=== PATIENT | female | born 1940 | race Caucasian/White ===

== ENCOUNTER 2017-09-08 10:47 | Inpatient (IN) ==
--- OUTSIDE RECORDS SUMMARY | 2017-09-08 11:18 | External Medical Summary ---
:1940 Author Organization [facility]. Summary purpose CCDA Sent to [facility] Chief Complaint and Reason for Visit No authorized Reason for Visit (Admitting Diagnosis) is available for this visit. Problem list No authorized problems tracked for continuity of care are available for this visit. Encounters No authorized problems tracked for encounter diagnoses are available for this visit. Medications No medications recorded for this patient visit Allergies, adverse reactions, alerts Allergen Category Ingredient Status Reaction Severity Onset No Known Drug No Known Drug No Known Drug Active Allergy Allergy Allergy No Known Food No Known Food No Known Food Active Allergy Allergy Allergies Immunizations No immunizations recorded for this patient visit Relevant diagnostic tests and/or laboratory data RESULTS CBC :30:00 Result Normal Range Units WBC 5.40 4.8-10.8 x103/mm3 Neutrophil % L 49.2 50-70 % Lymph % 30.4 20-50 % [place] % H 14.8 1.0-9.0 % Eosinophil % H 5.0 0-4 % Basophil % 0.6 0-2 % Neutrophil # L 2.66 3.0-7.0 x103/mm3 Lymph # 1.64 1.0-4.0 x103/mm3 [place] # 0.80 0.0-0.8 x103/mm3 Eosinophil # 0.27 0-0.5 x103/mm3 Basophil # 0.03 0-0.2 x103/mm3 RBC L 4.07 4.20-5.40 x103/mm3 HGB 13.1 12.0-16.0 g/dl HCT 40.2 37.0-47.0 % MCV 98.8 81-99 FL MCH H 32.2 27.0-31.0 pg MCHC 32.6 32.0-36.0 g/dl RDW 12.9 12-15 % Platelet 183 150-400 x103/mm3 MPV H 11.7 6.0-10.0 FL Chemistry Group :30:00 Result Normal Range Units Sodium 138 134-145 mmol/L Potassium 3.9 3.6-5.0 mmol/L Chloride 100 98-107 mmol/L CO2 26 22-30 mmol/L Glucose H 114 75-110 mg/dl BUN 10 9-20 mg/dl Creatinine L .70 0.8-1.7 mg/dl eGFR 81 ml/min. Calcium 9.3 8.4-10.2 mg/dl Coagulation Group [id number]:30:00 Result Normal Range Units Protime 10.7 9.5-12.3 Sec INR 1.0 History of procedures Procedure Code Code Type Description Date Performed Performing Physician 61663 CPT-4 PROTHROMBIN TIME 11-22-2016 [facility] 11472 CPT-4 METABOLIC PANEL TOTAL 11-22-2016 [place] [address] CPT-4 COMPLETE CBC, 11-22-2016 [facility] AUTOMATED Functional status No functional or cognitive status observations are available for this visit. Vital signs No authorized vital signs are available for this visit. Social history No Social History or smoking status observations were recorded for this visit. ( Unknown if ever smoked.) Treatment Plan No treatment plan text is available for this visit. Hospital discharge instructions No discharge instruction text is available for this visit.
--- OUTSIDE RECORDS SUMMARY | 2017-09-08 11:18 | External Medical Summary ---
:1940 Author Organization [facility]. Summary purpose CCDA Sent to [facility] Chief Complaint and Reason for Visit Admit Diagnosis 1 FX LUMBAR VERTEBRA-CLOSE Problem list No authorized problems tracked for continuity of care are available for this visit. Encounters No authorized problems tracked for encounter diagnoses are available for this visit. Medications No home medications recorded for this patient visit Allergies, adverse reactions, alerts Allergen Category Ingredient Status Reaction Severity Onset No Known Drug No Known Drug No Known Drug Active Allergy Allergy Allergy No Known Food No Known Food No Known Food Active Allergy Allergy Allergies Immunizations No immunizations recorded for this patient visit Relevant diagnostic tests and/or laboratory data RESULTS CBC [id number]:08:00 Result Normal Range Units WBC 6.44 4.8-10.8 x103/mm3 Neutrophil % 53.6 50-70 % Lymph % 27.8 20-50 % [place] % H 15.2 1.0-9.0 % Eosinophil % 3.1 0-4 % Basophil % 0.3 0-2 % Neutrophil # 3.45 3.0-7.0 x103/mm3 Lymph # 1.79 1.0-4.0 x103/mm3 [place] # H 0.98 0.0-0.8 x103/mm3 Eosinophil # 0.20 0-0.5 x103/mm3 Basophil # 0.02 0-0.2 x103/mm3 RBC L 3.86 4.20-5.40 x103/mm3 HGB 13.1 12.0-16.0 g/dl HCT 40.0 37.0-47.0 % MCV H 103.6 81-99 FL MCH H 33.9 27.0-31.0 pg MCHC 32.8 32.0-36.0 g/dl RDW L 11.8 12-15 % Platelet 219 150-400 x103/mm3 MPV H 11.2 6.0-10.0 FL Chemistry Group [id number]:00 Result Normal Range Units Sodium 138 134-145 mmol/L Potassium 4.3 3.6-5.0 mmol/L Chloride 99 98-107 mmol/L CO2 28 22-30 mmol/L Glucose H 119 75-110 mg/dl BUN 9 9-20 mg/dl Creatinine L .7 0.8-1.7 mg/dl Calcium 9.6 8.4-10.2 mg/dl History of procedures Procedure Code Code Type Description Date Performed Performing Physician 54782 CPT-4 METABOLIC PANEL TOTAL 12-24-2014 [facility] [place] [address] CPT-4 COMPLETE CBC 12-24-2014 [facility] AUTOMATED Functional status No functional or cognitive [...]
--- OUTSIDE RECORDS SUMMARY | 2017-09-08 11:18 | External Medical Summary ---
:1940 Author Organization [facility]. Summary purpose CCDA Sent to [facility] Chief Complaint and Reason for Visit No [...] visit Relevant diagnostic tests and/or laboratory data No authorized results are available for this patient visit History of procedures Procedure Code Code Type Description Date Performed Performing Physician 28595 CPT-4 MANUAL THERAPY 05-18-2015 DAMIR GINNY 10572 CPT-4 MANUAL THERAPY 05-20-2015 DAMIR LOMAR G0283 CPT-4 ELEC STIM OTHER THAN 05-18-2015 DAMIR WALLYMAR WOUND G0283 CPT-4 ELEC STIM OTHER THAN 05-20-2015 [facility] 59147 CPT-4 MANUAL THERAPY 05-25-2015 DAMIR GROSS 60326 CPT-4 MANUAL THERAPY 05-28-2015 DAMIR GROSS G0283 CPT-4 ELEC STIM OTHER THAN 05-25-2015 [facility] CPT-4 ELEC STIM OTHER THAN 05-28-2015 DAMIR [place] WOUND [address]195 CPT-4 MANUAL THERAPY 06-02-2015 DAMIR GROSS 57964 CPT-4 MANUAL THERAPY 06-04-2015 DAMIR LOMAR G0283 CPT-4 ELEC STIM OTHER THAN 06-02-2015 DAMIR WALLYMAR WOUND G0283 CPT-4 ELEC STIM OTHER THAN 06-04-2015 DAMIR [place] WOUND 56897 CPT-4 THERAPEUTIC EXERCISES 06-09-2015 DAMIR GROSS 41429 CPT-4 MANUAL THERAPY 06-09-2015 DAMIR GROSS Functional status No functional or cognitive status [...]
--- OUTSIDE RECORDS SUMMARY | 2017-09-08 11:19 | External Medical Summary ---
:1940 Author Organization [facility]. Summary purpose CCDA Sent to [facility] Chief Complaint and Reason for Visit No [...] for this patient visit History of procedures No procedures recorded for this patient visit. Functional status No functional or cognitive status [...]
--- OUTSIDE RECORDS SUMMARY | 2017-09-08 11:19 | External Medical Summary ---
:1940 Author Organization [facility]. Summary purpose CCDA Sent to [facility] Chief Complaint and Reason for Visit Admit Diagnosis 1 R53.82 Problem list No authorized problems tracked for [...]
--- OUTSIDE RECORDS SUMMARY | 2017-09-08 11:19 | External Medical Summary ---
:1940 Author Organization [facility]. Summary purpose CCDA Sent to [facility] Chief Complaint and Reason for Visit Admit Diagnosis 1 JOINT PAIN-PELVIS Problem list No authorized problems tracked for [...] Code Type Description Date Performed Performing Physician 78583 CPT-4 PT EVALUATION 01-28-2015 [facility] 70776 CPT-4 ULTRASOUND THERAPY 01-28-2015 [facility] 67457 CPT-4 ULTRASOUND THERAPY 01-30-2015 [facility] 62399 CPT-4 MANUAL THERAPY 1/> 01-30-2015 [facility] 69495 CPT-4 THERAPEUTIC 01-28-2015 [facility] ACTIVITIES G0283 CPT-4 ELEC STIM OTHER THAN 01-28-2015 [facility] WOUND G0283 CPT-4 ELEC STIM OTHER THAN 01-30-2015 [facility] WOUND 82658 CPT-4 ULTRASOUND THERAPY 02-02-2015 [facility] 39805 CPT-4 ULTRASOUND THERAPY 02-03-2015 [facility] 88840 CPT-4 ULTRASOUND THERAPY 02-05-2015 [facility] 97881 CPT-4 MANUAL THERAPY 1/> 02-02-2015 [facility] 84005 CPT-4 MANUAL THERAPY 1/> 02-03-2015 [facility] [place] [facility] 82188 CPT-4 MANUAL THERAPY 1/> 02-05-2015 [facility] [place] [place] 94043 CPT-4 THERAPEUTIC 02-05-2015 [facility] [place] [place] ACTIVIT[facility] G0283 CPT-4 ELEC STIM OTHER THAN 02-02-2015 [facility] [place] WOUND G0283 CPT-4 ELEC STIM OTHER THAN 02-03-2015 [facility] [place] W[place] G0283 CPT-4 ELEC STIM OTHER THAN 02-05-2015 [facility] [place] [place] W[place] 32068 CPT-4 ULTRASOUND THERAPY 02-09-2015 E[facility]LINE L[place] 78442 CPT-4 ULTRASOUND THERAPY 02-10-2015 E[facility]LINE[facility]RIS L[place] 65388 CPT-4 ULTRASOUND THERAPY 02-12-2015 [facility]IS L[facility] 17258 CPT-4 MANUAL THERAPY 1/> 02-09-2015 [facility] [place] 74018 CPT-4 MANUAL THERAPY 1/> 02-10-2015 [facility] L[facility] 32490 CPT-4 MANUAL THERAPY 1/> 02-12-2015 E[facility]CHRIS LAY[facility] [place] G0283 CPT-4 ELEC STIM OTHER THAN 02-09-2015 E[facility]LINECHRIS L[place] [place] W[place] G0283 CPT-4 ELEC STIM OTHER THAN 02-10-2015 [facility]CHRIS [place] W[place] G0283 CPT-4 ELEC STIM OTHER THAN 02-12-2015 [facility]CHRIS L[facility] WOUND Functional status No functional or cognitive status [...]
--- OUTSIDE RECORDS SUMMARY | 2017-09-08 11:19 | External Medical Summary ---
:1940 Author Organization [facility]. Summary purpose CCDA Sent to [facility] Chief Complaint and Reason for [...] Relevant diagnostic tests and/or laboratory data RESULTS Chemistry Group [id number]:40:00 Result Normal Range Units Total Protein 6.7 6.3-8.2 g/dl Albumin 3.5 3.5-5.0 g/dl Alk Phos 123 38-126 U/L AST H 39 14-36 U/L ALT 37 11-66 U/L T Bili .7 0.2-1.3 mg/dl D Bili 0.0 0.0-0.3 mg/dl I Bili .5 0.0-1.1 mg/dl History of procedures Procedure Code Code Type Description Date Performed Performing Physician 07070 CPT-4 HEPATIC FUNCTION 12-27-2016 [facility] Functional status No functional or cognitive status [...]
--- OUTSIDE RECORDS SUMMARY | 2017-09-08 11:19 | External Medical Summary ---
:1940 Author Organization [facility]. Summary purpose CCDA Sent to [facility] Chief Complaint and Reason for Visit No [...] tests and/or laboratory data RESULTS Chemistry Group [id number]:14:00 Result Normal Range Units Total Protein 6.7 6.3-8.2 g/dl Albumin 3.6 3.5-5.0 g/dl Alk Phos 115 38-126 U/L AST 27 14-36 U/L ALT 20 11-66 U/L T Bili .7 0.2-1.3 mg/dl D Bili 0.0 0.0-0.3 mg/dl I Bili .4 0.0-1.1 mg/dl History of procedures No procedures recorded for [...]
--- OUTSIDE RECORDS SUMMARY | 2017-09-08 11:19 | External Medical Summary ---
:1940 Author Organization [facility]. Summary purpose CCDA Sent to [facility] Chief Complaint and Reason for Visit [...]
--- OUTSIDE RECORDS SUMMARY | 2017-09-08 11:19 | External Medical Summary ---
:1940 Author Organization [facility]. Summary purpose CCDA Sent to [facility] Chief Complaint and Reason for Visit [...] Code Type Description Date Performed Performing Physician 51027 CPT-4 ULTRASOUND THERAPY 02-18-2015 [facility] 10485 CPT-4 ULTRASOUND THERAPY 02-20-2015 [facility] 75364 CPT-4 MANUAL THERAPY 1/> 02-18-2015 [facility] 45879 CPT-4 MANUAL THERAPY 1/> 02-20-2015 [facility] G0283 CPT-4 ELEC STIM OTHER THAN 02-18-2015 [facility] WOUND G0283 CPT-4 ELEC STIM OTHER THAN 02-20-2015 [facility] WOUND 44770 CPT-4 ULTRASOUND THERAPY 02-23-2015 [facility] 34423 CPT-4 ULTRASOUND THERAPY 02-25-2015 [facility] 73083 CPT-4 MANUAL THERAPY 1/> 02-23-2015 [facility] 67387 CPT-4 MANUAL THERAPY 1/> 02-25-2015 [facility] G0283 CPT-4 ELEC STIM OTHER THAN 02-23-2015 [facility] WOUND G0283 CPT-4 ELEC STIM OTHER THAN 02-25-2015 [facility] [place] 50409 CPT-4 ULTRASOUND THERAPY 03-02-2015 [facility] 26542 CPT-4 ULTRASOUND THERAPY 03-04-2015 [facility] KIN[facility]AL [facility] 23432 CPT-4 MANUAL THERAPY 1/> 03-02-2015 [facility]IN[facility]AL [facility] 62542 CPT-4 MANUAL THERAPY 1/> 03-04-2015 [facility] G028[facility] CPT-4 ELEC STIM OTHER THAN 03-02-2015 [facility] SCOTTY[place]OM [place] G0283 CPT-4 ELEC STIM OTHER THAN 03-04-2015 [facility] [place] 69207 CPT-4 ULTRASOUND THERAPY 03-09-2015 [facility]LINECHRIS LAY[facility] 06742 CPT-4 ULTRASOUND THERAPY 03-11-2015 [facility] KINJAL [facility] 31257 CPT-4 THERAPEUTIC EXERCISES 03-11-2015 [facility] 36562 CPT-4 MANUAL THERAPY 1/> 03-09-2015 [facility] 11550 CPT-4 MANUAL THERAPY 1/> 03-11-2015 [facility] G0283 CPT-4 ELEC STIM OTHER THAN 03-09-2015 E[facility]LINE PAULINE [place] G0283 CPT-4 ELEC STIM OTHER THAN 03-11-2015 [facility] Functional status No functional or cognitive [...]
--- OUTSIDE RECORDS SUMMARY | 2017-09-08 11:19 | External Medical Summary ---
:1940 Author Organization [facility]. Summary purpose CCDA Sent to [facility] Chief Complaint and Reason for Visit No [...] tests and/or laboratory data RESULTS Chemistry Group [id number]:30:00 Result Normal Range Units Sodium 140 134-145 mmol/L Potassium 4.3 3.6-5.0 mmol/L Chloride 99 98-107 mmol/L CO2 29 22-30 mmol/L Glucose 104 75-110 mg/dl BUN 11 9-20 mg/dl Creatinine .82 0.8-1.7 mg/dl eGFR 68 ml/min. Calcium 9.5 8.4-10.2 mg/dl History of procedures Procedure Code Code Type Description Date Performed Performing Physician 43688 CPT-4 METABOLIC PANEL TOTAL 02-16-2016 EARLINE NAYAK Functional status No functional or cognitive status [...]
--- OUTSIDE RECORDS SUMMARY | 2017-09-08 11:19 | External Medical Summary ---
:1940 Author Organization [facility]. Summary purpose CCDA Sent to [facility] Chief Complaint and Reason for Visit Admit Diagnosis 1 PRE-OP EXAMINATION, UNSP Problem list No authorized problems tracked for [...] diagnostic tests and/or laboratory data RESULTS CBC :29:00 Result Normal Range Units WBC 8.61 4.8-10.8 x103/mm3 Neutrophil % 63.3 50-70 % Lymph % 20.7 20-50 % [place] % H 13.6 1.0-9.0 % Eosinophil % 2.1 0-4 % Basophil % 0.3 0-2 % Neutrophil # 5.45 3.0-7.0 x103/mm3 Lymph # 1.78 1.0-4.0 x103/mm3 [place] # H 1.17 0.0-0.8 x103/mm3 Eosinophil # 0.18 0-0.5 x103/mm3 Basophil # 0.03 0-0.2 x103/mm3 RBC L 3.74 4.20-5.40 x103/mm3 HGB 12.7 12.0-16.0 g/dl HCT 39.1 37.0-47.0 % MCV H 104.5 81-99 FL MCH H 34.0 27.0-31.0 pg MCHC 32.5 32.0-36.0 g/dl RDW 14.1 12-15 % Platelet 219 150-400 x103/mm3 MPV H 10.8 6.0-10.0 FL Chemistry Group :29:00 Result Normal Range Units Sodium 135 134-145 mmol/L Potassium 4.0 3.6-5.0 mmol/L Chloride L 96 98-107 mmol/L CO2 27 22-30 mmol/L Glucose 97 75-110 mg/dl BUN 13 9-20 mg/dl Creatinine L .7 0.8-1.7 mg/dl Calcium 9.2 8.4-10.2 mg/dl History of procedures Procedure Code Code Type Description Date Performed Performing Physician 31298 CPT-4 METABOLIC PANEL TOTAL 03-16-[place] [address] CPT-4 COMPLETE CBC AUTOMATED 03-16-2015 JULIO SANTIZO Functional status No functional or cognitive status [...]
--- OUTSIDE RECORDS SUMMARY | 2017-09-08 11:19 | External Medical Summary ---
:1940 Author Organization [facility]. Summary purpose [facility] Chief Complaint and Reason for [...] Code Type Description Date Performed Performing Physician 30027 CPT-4 PT EVALUATION 05-07-2015 [facility] 47962 CPT-4 MANUAL THERAPY 1/> 05-07-2015 [facility] G0283 CPT-4 ELEC STIM OTHER THAN 05-07-2015 [facility] [place] W[place] 27882 CPT-4 MANUAL THERAPY 1/> 05-11-2015 [facility] 52926 CPT-4 MANUAL THERAPY 1/> 05-13-2015 [facility] 36284 CPT-4 MANUAL THERAPY 1/> 05-15-2015 [facility] G0283 CPT-4 ELEC STIM OTHER THAN 05-11-2015 DAMIR WEIMAR WOUND G0283 CPT-4 ELEC STIM OTHER THAN 05-13-2015 DAMIR WEIMAR WOUND G0283 CPT-4 ELEC STIM OTHER THAN 05-15-2015 DAMIR [place] WOUND Functional status No functional or cognitive [...]
--- OUTSIDE RECORDS SUMMARY | 2017-09-08 11:19 | External Medical Summary ---
:1940 Author Organization [facility]. Summary purpose CCDA Sent to [facility] Chief Complaint and Reason for Visit [...] Code Type Description Date Performed Performing Physician 25364 CPT-4 MANUAL THERAPY 06-16-2015 DAMIR WALLYMAR 86456 CPT-4 MANUAL THERAPY 06-19-2015 DAMIR WEIMAR G0283 CPT-4 ELEC STIM OTHER THAN 06-16-2015 DAMIR WEIMAR WOUND G0283 CPT-4 ELEC STIM OTHER THAN 06-19-2015 DAMIR WEIMAR WOUND Functional status No functional or cognitive [...]
--- OUTSIDE RECORDS SUMMARY | 2017-09-08 11:19 | External Medical Summary ---
:1940 Author Organization [facility]. Summary purpose CCDA Sent to [facility] Chief Complaint and Reason for Visit Admit Diagnosis 1 syncope; L sided weakness Problem list No authorized problems tracked for [...]
--- OUTSIDE RECORDS SUMMARY | 2017-09-08 11:19 | External Medical Summary | Continuity of Care Document ---
:1940 Author Organization Via [facility] in [place] Allergies Active Description Code Type Severity Reaction Onset Reported/ Identified Relationship Clinical to Patient Status Yes No Known F0019 Drug Unknown N/A 05/20/2012 Drug 88429 Aller Allergies gy Yes No Known Drug N/A N/A 03/05/2013 Allergies Aller gy Yes No Known Drug N/A N/A 03/05/2013 Drug Aller Allergies gy Yes No Known Food N/A N/A 03/05/2013 Food Aller Allergies gy Yes No Known 15906 ND N/A N/A 03/09/2013 Confirmed Drug Allergy 590 or Verified Yes No Known NO NF N/A N/A 03/09/2013 Food KNOWN Allergies FOOD ALLER G Yes No Known NF N/A N/A 03/09/2013 Confirmed Food Allergy or Verified Yes acetaminophe F0060 Drug Moderate Hallucina 12/11/2016 n 23625 Aller tions gy Yes oxycodone F0060 Drug Moderate Hallucina 12/11/2016 15010 Aller tions gy Medications There is no data. Problems Date Dx Attending Type Code Diagnosis Diagnosed By Coded 05/21/2012 Ot 276.52 HYPOVOLEMIA 05/21/2012 Ot 276.8 HYPOPOTASSEMIA 05/21/2012 Ot 458.0 ORTHOSTATIC HYPOTENSION 05/21/2012 Ot 558.9 NONINF GASTROENTERIT NEC 05/21/2012 Ot V45.4 ARTHRODESIS STATUS 01/09/2013 Carlos Barrios MD Final 401.9 HYPERTENSION NOS L 01/09/2013 Carlos Barrios MD Final 530.81 ESOPHAGEAL REFLUX L 01/09/2013 Carlos Barrios MD Final 707.15 OTHER FOOT ULCER L 01/09/2013 Carlos Barrios MD Final 735.0 HALLUX VALGUS L 03/06/2013 Carlos Barrios MD Final 041.02 GROUP B STREP INFECTION L 03/06/2013 Carlos Barrios MD Final 401.9 HYPERTENSION NOS L 03/06/2013 Carlos Barrios MD Final 682.7 FOOT CELLULITIS L 03/06/2013 Carlos Barrios MD Final 707.15 OTHER FOOT ULCER L 03/06/2013 Carlos Barrios MD Final 711.07 PYOGEN ARTHRITIS-ANKLE L 03/06/2013 Carlos Barrios MD Final 727.00 SYNOVITIS NOS L 03/11/2013 Gisela ESTEBAN MD 682.7 CELLULITIS OF FOOT KIET E 03/16/2013 ANA Higgins 682.7 CELLULITIS OF FOOT MALLY GUADALUPE 03/18/2013 Gisela ESTEBAN MD 682.7 CELLULITIS OF FOOT KIET E 03/25/2013 Gisela ESTEBAN MD 682.7 CELLULITIS OF FOOT KIET E 04/01/2013 Gisela ESTEBAN MD 682.7 CELLULITIS OF FOOT JN C 04/03/2013 ANA Higgins 272.0 PURE MALLY WALKER MD 04/08/2013 Gisela ESTEBAN MD 682.7 CELLULITIS OF FOOT KIET E 04/15/2013 Gisela ESTEBAN MD 682.7 CELLULITIS OF FOOT KIET E 04/15/2013 ANA Higgins 682.7 CELLULITIS OF FOOT MALLY GUADALUPE 04/22/2013 Gisela ESTEBAN MD 686.9 LOCAL SKIN INFECTION NOS KIET E 04/30/2013 Gisela ESTEBAN MD 682.7 CELLULITIS OF FOOT KIET E 07/30/2013 ANA Higgins 401.9 HYPERTENSION NOS MALLY GUADALUPE 07/30/2013 ANA Higgins 787.01 NAUSEA WITH VOMITING MALLY GUADALUPE 10/08/2013 Gisela DUMONT MD 401.1 BENIGN HYPERTENSION ROBERTO R 10/14/2013 ANA Higgins 724.2 MALLY NASSAR MD 10/18/2013 JULIA GUADALUPE D 455.3 EXT HEMORRHOID W/O COMPL ROBERTO R 10/18/2013 JULIA GUADALUPE D 562.10 DIVERTICULO COLON NO HEM ROBERTO R 10/18/2013 Gisela DUMONT MD V76.51 SCREENING MAL GRAEME COLON ROBERTO R 11/13/2013 ANA Higgins 724.2 MALLY NASSAR MD 10/13/2014 Ot 793.89 10/16/2014 Ot 793.89 12/24/2014 ULLOM MINNIC D 805.4 FX LUMBAR VERTEBRA-CLOSE , MALLY R 02/13/2015 ULLOM MINNIC D 719.45 JOINT PAIN-PELVIS , MALLY R 02/13/2015 [facility]2 LUMBAGO , MALLY R 02/13/2015 [facility] 805.4 FX LUMBAR VERTEBRA-CLOSE , MALLY R 03/16/2015 ULLO MINNIC D V72.84 PRE-OP EXAMINATION, UNSP , MALLY R 03/16/2015 ULLOM MINNIC D 719.45 JOINT PAIN-PELVIS , MALLY R 03/16/2015 [facility] 724.2 LUMANGELA GUADALUPE, MALLY R 03/16/2015 ULLO MINNIC D 805.4 FX LUMBAR VERTEBRA-CLOSE , MALLY R 05/16/2015 GINNY GUADALUPE, D M43.26 Fusion of spine, lumbar DAMIR D region 05/16/2015 Gisela GROSS MD M54.5 Low back pain DAMIR D 06/15/2015 GINNY GUADALUPE, A 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, DAMIR D thoracolumbar region 06/15/2015 GINNY GUADALUPE, D M43.26 Fusion of spine, lumbar DAMIR D region 06/15/2015 GINNY GUADALUPE, A M54.5 Low back pain DAMIR D 07/16/2015 Gisela GROSS MD 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, DAMIR D thoracolumbar region 07/16/2015 GINNY GUADALUPE, D M43.26 Fusion of spine, lumbar DAMIR D region 07/16/2015 GINNY GUADALUPE, A M54.5 Low back pain DAMRI D 10/01/2015 Ullom Minnich, Ot Z12.31 Mally 10/01/2015 Ullom Minnich, Ot Z12.31 Mally 10/06/2015 Ullom Minnich, Ot N64.89 Mally 10/06/2015 Ullom Minnich, Ot R92.0 Mally 10/06/2015 Ullom Minnich, Ot Z12.31 Mally 10/09/2015 Ullom Minnich, Ot N64.89 Mally 10/09/2015 Ana Meraz, Ot R92.0 Mally 10/09/2015 Ana Meraz, Ot Z12.31 Mally 10/13/2015 Ana Meraz, Ot N64.89 Mally 10/13/2015 Ana Meraz, Ot N64.89 Mally 10/13/2015 Ana Meraz, Ot N64.89 Mally 10/21/2015 Ana Meraz, Ot N64.89 Mally 10/21/2015 Ana Meraz, Ot R92.0 Mally 11/16/2015 DAMIR GROSS DF M48.06 Spinal stenosis, lumbar region 11/16/2015 DAMIR GROSS DF M51.36 Other intervertebral disc degeneration, 11/16/2015 DAMIR GROSS DF Z98.1 Arthrodesis status 12/10/2015 Ana Meraz, Ot N64.89 OTHER SPECIFIED Mally DISORDERS OF BREAST 12/10/2015 Ana Meraz, Ot R92.0 MAMMOGRAPHIC Mally MICROCALCIFICATION FOUND ON 02/16/2016 ANA MERAZ Gisela I10 Essential (primary) GREGOR GUADALUPE hypertension 03/30/2016 DAMIR GROSS DF M48.06 Spinal stenosis, lumbar region 03/30/2016 DAMIR GROSS DF M51.36 Other intervertebral disc degeneration, 03/30/2016 DAMIR GROSS DF Z98.1 Arthrodesis status 04/04/2016 Ot 724.2 LUMBAGO 04/04/2016 Ot 722.10 LUMBAR DISC DISPLACEMENT 04/04/2016 Ot 722.52 LUMB/LUMBOSAC DISC DEGEN 04/04/2016 Ot 724.4 LUMBOSACRAL NEURITIS NOS 04/04/2016 Ot V45.4 ARTHRODESIS STATUS 04/04/2016 Damir Gross Ot 722.10 LUMBAR DISC DISPLACEMENT 04/04/2016 Damir Gross Ot 722.52 LUMB/LUMBOSAC DISC DEGEN 04/04/2016 Damir Gross Ot 724.02 SPINAL STENOSIS, LUMBAR REG, W/OUT NEURO 04/04/2016 Damir Gross Ot 724.4 LUMBOSACRAL NEURITIS NOS 04/04/2016 Ana Meraz, Ot 611.89 OTHER SPECIFIED Mally DISORDERS OF BREAST 04/04/2016 Ana Meraz, Ot V76.12 OTH SCREEN MAMMO-MALIGN Mally NEOPLASM OF GGAAN 04/04/2016 Ana Meraz, Ot 793.89 OTH (ABN) FINDINGS ON Mally RADIOLOGICAL EXAMI 04/04/2016 Ana Meraz, Ot 611.89 OTHER SPECIFIED Mally DISORDERS OF BREAST 04/04/2016 Ot 793.89 OTH (ABN) FINDINGS ON RADIOLOGICAL EXAMI 04/04/2016 Ana Meraz, Ot N64.89 OTHER SPECIFIED Mally DISORDERS OF BREAST 04/04/2016 Ana Meraz, Ot R92.0 MAMMOGRAPHIC Mally MICROCALCIFICATION FOUND ON 04/04/2016 Ana Meraz, Ot Z12.31 ENCNTR SCREEN MAMMOGRAM Mally FOR MALIGNANT NE 04/04/2016 Ana Meraz, Ot N64.89 OTHER SPECIFIED Mally DISORDERS OF BREAST 04/04/2016 Ana Meraz, Ot R92.0 MAMMOGRAPHIC Mally MICROCALCIFICATION FOUND ON 04/18/2016 Damir Gross Ot M25.552 PAIN IN LEFT HIP 04/18/2016 Damir Gross Ot Z98.89 OTHER SPECIFIED POSTPROCEDURAL STATES 04/25/2016 Damir Gross Ot M25.552 PAIN IN LEFT HIP 04/25/2016 Damir Gross Ot Z98.89 OTHER SPECIFIED POSTPROCEDURAL STATES 04/25/2016 Damir Gross Ot M25.552 PAIN IN LEFT HIP 04/25/2016 Damir Gross Ot Z98.89 OTHER SPECIFIED POSTPROCEDURAL STATES 04/26/2016 Damir Gross Ot M25.552 PAIN IN LEFT HIP 04/26/2016 Damir Gross Ot Z98.89 OTHER SPECIFIED POSTPROCEDURAL STATES 04/26/2016 Damir Gross Ot M25.552 PAIN IN LEFT HIP 04/26/2016 Damir Gross Ot Z98.89 OTHER SPECIFIED POSTPROCEDURAL STATES 05/06/2016 Damir Gross Ot M25.552 PAIN IN LEFT HIP 05/06/2016 Damir Gross Ot Z98.89 OTHER SPECIFIED POSTPROCEDURAL STATES 05/08/2016 Damir Gross Ot M25.552 PAIN IN LEFT HIP 05/08/2016 BrockwellDamir Ot Z98.89 OTHER SPECIFIED POSTPROCEDURAL STATES 05/08/2016 Ginny Damir Higgins Ot M25.552 PAIN IN LEFT HIP 05/08/2016 BrockwellDamir Ot Z98.89 OTHER SPECIFIED POSTPROCEDURAL STATES 05/10/2016 Ginny Damir D Ot M25.552 PAIN IN LEFT HIP 05/10/2016 BrockwellDamir figueroa Ot Z98.89 OTHER SPECIFIED POSTPROCEDURAL STATES 05/10/2016 GinnyDamir Ot M25.552 PAIN IN LEFT HIP 05/10/2016 BrockwellDamir figueroa Ot Z98.89 OTHER SPECIFIED POSTPROCEDURAL STATES 05/11/2016 GinnyDamir Ot M25.552 PAIN IN LEFT HIP 05/11/2016 Damir Gross Ot Z98.89 OTHER SPECIFIED POSTPROCEDURAL STATES 05/12/2016 BrockwellDamir Ot M25.552 PAIN IN LEFT HIP 05/12/2016 Damir Gross Ot Z98.89 OTHER SPECIFIED POSTPROCEDURAL STATES 05/12/2016 Ginny Damir Higgins Ot M25.552 PAIN IN LEFT HIP 05/12/2016 Damir Gross Ot Z98.89 OTHER SPECIFIED POSTPROCEDURAL STATES 05/19/2016 GinnyDamir Ot M25.552 PAIN IN LEFT HIP 05/19/2016 Damir Gross Ot Z98.89 OTHER SPECIFIED POSTPROCEDURAL STATES 05/24/2016 Damir Gross Ot M25.552 PAIN IN LEFT HIP 05/24/2016 Damir Gross Ot Z98.89 OTHER SPECIFIED POSTPROCEDURAL STATES 05/24/2016 BrockwellDamir Ot M25.552 PAIN IN LEFT HIP 05/24/2016 Damir Gross Ot Z98.89 OTHER SPECIFIED POSTPROCEDURAL STATES 05/30/2016 Damir Gross Ot M25.552 PAIN IN LEFT HIP 05/30/2016 Damir Gross Ot Z98.89 OTHER SPECIFIED POSTPROCEDURAL STATES 06/01/2016 Damir Gross Ot M25.552 PAIN IN LEFT HIP 06/06/2016 Damir Gross Ot M25.552 PAIN IN LEFT HIP 06/06/2016 Damir Gross Ot M25.552 PAIN IN LEFT HIP 06/21/2016 Damir Gross Ot M25.552 PAIN IN LEFT HIP 06/21/2016 Damir Gross Ot M25.552 PAIN IN LEFT HIP 06/21/2016 Brockwell Damir Higgins Ot M25.552 PAIN IN LEFT HIP 07/04/2016 Ginny Damir Higgins Ot M25.552 PAIN IN LEFT HIP 07/04/2016 Damir Gross Ot Z98.89 OTHER SPECIFIED POSTPROCEDURAL STATES 07/05/2016 Damir Gross Ot M25.552 PAIN IN LEFT HIP 07/12/2016 Damir Gross Ot M25.552 PAIN IN LEFT HIP 07/12/2016 Damir Gross Ot Z98.89 OTHER SPECIFIED POSTPROCEDURAL STATES 08/06/2016 DAMIR GROSS DA M51.36 Other intervertebral disc degeneration, 08/08/2016 DAMIR GROSS DA M51.36 Other intervertebral disc degeneration, 08/08/2016 DAMIR GROSS DA M51.36 Other intervertebral disc degeneration, 08/08/2016 DAMIR GROSS DF M48.06 Spinal stenosis, lumbar region 08/08/2016 DAMIR GROSS DF M51.36 Other intervertebral disc degeneration, 08/08/2016 DAMIR GROSS DF R20.2 Paresthesia of skin 08/08/2016 DAMIR GROSS DF Z98.1 Arthrodesis status 11/22/2016 ANA Higgins M48.06 Spinal stenosis, lumbar MALLY GUADALUPE region 12/11/2016 Damir Gross Ot M25.552 PAIN IN LEFT HIP 12/27/2016 ANA Higgins R74.0 Nonspec elev of levels MALLY GUADALUPE of transamns & lactic acid dehydrgnse 05/24/2017 DAMIR GROSS F M48.061 Spinal stenosis, lumbar region without neurogenic claudication 05/24/2017 DAMIR GROSS F Z98.1 Arthrodesis status Procedures Code [place] [address] Carlos Flores MD 01/09/2013 TISSUE/MUSCLE 00095 Carlos Flores MD 03/06/2013 TISSUE/MUSCLE/BONE 74138 Carlos Bueno MD 03/06/2013 OF FOOT JOINT 57997 ANA MERAZ MD, 03/09/2013 THER/PROPH/DIAG INJ, IV MALLY R PUSH J1335 ERTAPENEM ANA MERAZ MD, 03/09/2013 INJECTION MALLY R 30061 ANA MERAZ MD, 03/10/2013 THER/PROPH/DIAG INJ, IV MALLY R PUSH J1335 ERTAPENEM CHUCK CAMPUZANO 03/10/2013 INJECTION 16715 ANA MERAZ MD, 03/11/2013 THER/PROPH/DIAG INJ, IV MALLY R PUSH J1335 ERTAPENEM ANA MERAZ MD, 03/11/2013 INJECTION MALLY R 53346 ROUTINE EULALIA GUADALUPE, JN Kohler 03/11/2013 VENIPUNCTURE 48672 REJI ESTEBAN MD, JN Kohler 03/11/2013 METABOLIC PANEL 97754 COMPLETE CBC, EULALIA GUADALUPE, JN Kohler 03/11/2013 AUTOMATED 40758 RBC SED RATE, EULALIA GUADALUPE, JN Kohler 03/11/2013 AUTOMATED 59295 C-REACTIVE EULALIA GUADALUPE, JN Kohler 03/11/2013 PROTEIN 41863 NAA MERAZ MD, 03/12/2013 THER/PROPH/DIAG INJ, IV MALLY R PUSH J1335 ERTAPENEM ANA MERAZ MD, 03/12/2013 INJECTION MALLY R 01584 ANA MERAZ MD, 03/13/2013 THER/PROPH/DIAG INJ, IV MALLY R PUSH J1335 ERTAPENEM ANA MERAZ MD, 03/13/2013 INJECTION MALLY R 78741 ANA MERAZ MD, 03/14/2013 THER/PROPH/DIAG INJ, IV MALLY R PUSH J1335 ERTAPENEM ANA MERAZ MD, 03/14/2013 INJECTION MALLY R 01923 ANA MERAZ MD, 03/15/2013 THER/PROPH/DIAG INJ, IV MALLY R PUSH J1335 ERTAPENEM ANA MERAZ MD, 03/15/2013 INJECTION MALLY R 21427 ANA MERAZ MD, 03/16/2013 THER/PROPH/DIAG INJ, IV MALLY R PUSH J1335 ERTAPENEM ANA MERAZ MD, 03/16/2013 INJECTION MALLY R 23035 EULALIA GUADALUPE, KIET Concepcion 03/17/2013 THER/PROPH/DIAG IV INF, INIT 36275 ROUTINE EULALIA GUADALUPE, JN Kohler 03/18/2013 VENIPUNCTURE 90154 REJI ESTEBAN MD, JN Kohler 03/18/2013 METABOLIC PANEL 67845 COMPLETE CBC, EULALIA GUADALUPE, JN Kohler 03/18/2013 AUTOMATED 93186 RBC SED RATE, EULALIA GUADALUPE, JN Kohler 03/18/2013 AUTOMATED 99517 C-REACTIVE EULALIA GUADALUPE, JN Kohler 03/18/2013 PROTEIN 96188 EULALIA GUADALUPE, KIET Concepcion 03/18/2013 THER/PROPH/DIAG IV INF, INIT J1335 ERTAPENEM ANA MERAZ MD, 03/18/2013 INJECTION MALLY R 70479 ANA MERAZ MD, 03/19/2013 THER/PROPH/DIAG INJ, IV MALLY R PUSH J1335 ALBAAPEREBECCA MERAZ MD, 03/19/2013 INJECTION MALLY R 49728 EULALIA GUADALUPE, KIET Concepcion 03/20/2013 THER/PROPH/DIAG IV INF, INIT J1335 ALBAAPENEM ANA MERAZ MD, 03/20/2013 INJECTION MALLY R 67454 EULALIA GUADALUPE, KIET Concepcion 03/21/2013 THER/PROPH/DIAG IV INF, INIT J1335 KRISTIN MERAZ MD, 03/21/2013 INJECTION MALLY R 36209 EULALIA GUADALUPE, KIET Concepcion 03/22/2013 THER/PROPH/DIAG IV INF, INIT 04453 EULALIA GUADALUPE, KIET Concepcion 03/22/2013 THER/PROPH/DIAG INJ, IV PUSH J1335 KRISTIN MERAZ MD, 03/22/2013 INJECTION MALLY R 00869 KIET ESTEBAN MD 03/23/2013 THER/PROPH/DIAG INJ, IV PUSH J1335 KRISTIN MERAZ MD, 03/23/2013 INJECTION MALLY R J1642 HEP INJECTION ANA MERAZ MD, 03/23/2013 MALLY R 36183Ness ESTEBAN MD, KIET Concepcion 03/24/2013 THER/PROPH/DIAG IV INF, INIT J1335 ERTAPENEM ANA MERAZ MD, 03/24/2013 INJECTION MALLY R J1642 HEP INJECTION ANA MERAZ MD, 03/24/2013 MALLY R 42435 ROUTINE EULALIA GUADALUPE, JN Kohler 03/25/2013 VENIPUNCTURE 62234 COMPREHEN EULALIA GUADALUPE, JN Kohler 03/25/2013 METABOLIC PANEL 51801 COMPLETE CBC, EULALIA GUADALUPE, JN Kohler 03/25/2013 AUTOMATED 34722 RBC SED RATE, EULALIA GUADALUPE, JN Kohler 03/25/2013 AUTOMATED 30782 C-REACTIVE EULALIA GUADALUPE, JN Kohler 03/25/2013 PROTEIN 63722 EULALIA GUADALUPE, KIET E 03/25/2013 THER/PROPH/DIAG IV INF, INIT J1335 ERTAPEREBECCA MERAZ MD, 03/25/2013 INJECTION MALLY R 32906 EULALIA GUADALUPE, KIET E 03/26/2013 THER/PROPH/DIAG INJ, IV PUSH J1335 KRISTIN MERAZ MD, 03/26/2013 INJECTION MALLY R 31269 EULALIA GUADALUPE, KIET E 03/27/2013 THER/PROPH/DIAG INJ, IV PUSH J1335 ERTAPENEM ANA MERAZ MD, 03/27/2013 INJECTION MALLY R 89812 EULALIA GUADALUPE, KIET E 03/28/2013 THER/PROPH/DIAG IV INF, INIT J1335 KRISTIN ESTEBAN MD, KIET E 03/28/2013 INJECTION J1642 HEP INJECTION EULALIA GUADALUPE, KIET E 03/28/2013 46960 EULALIA GUADALUPE, KIET E 03/29/2013 THER/PROPH/DIAG IV INF, INIT J1335 KRISTIN MERAZ MD, 03/29/2013 INJECTION MALLY R 43603Ness ESTEBAN MD, KIET E 03/30/2013 THER/PROPH/DIAG IV INF, INIT J1335 KRISTIN ESTEBAN MD, KIET E 03/30/2013 INJECTION 34903Ness ESTEBAN MD, KIET E 03/31/2013 THER/PROPH/DIAG IV INF, INIT J1335 KRISTIN MERAZ MD, 03/31/2013 INJECTION MALLY R J1642 HEP INJECTION ANA MERAZ MD, 03/31/2013 MALLY R 68085 ROUTINE EULALIA GUADALUPE, JN Kohler 04/01/2013 VENIPUNCTURE 75377 COMPLETE CBC, EULALIA GUADALUPE, JN Kohler 04/01/2013 AUTOMATED 56257 RBC SED RATE, EULALIA GUADALUPE, JN Kohler 04/01/2013 AUTOMATED 50435 C-REACTIVE EULALIA GUADALUPE, KIET Concepcion 04/01/2013 PROTEIN 06579 EULALIA GUADALUPE, KIET E 04/01/2013 THER/PROPH/DIAG IV INF, INIT J1335 ERTAPENEM ANA MERAZ MD, 04/01/2013 INJECTION MALLY R 27035 EULALIA GUADALUPE, KIET E 04/02/2013 THER/PROPH/DIAG IV INF, INIT J1335 KRISTIN ESTEBAN MD, KIET E 04/02/2013 INJECTION 29602 ROUTINE ANA MERAZ MD, 04/03/2013 VENIPUNCTURE MALLY R 31216 LIPID PANEL ANA MERAZ MD, 04/03/2013 MALLY R 38989 EULALIA GUADALUPE, KIET E 04/03/2013 THER/PROPH/DIAG IV INF, INIT J1335 KRISTIN ESTEBAN MD, KIET E 04/03/2013 INJECTION 44728 EULALIA GUADALUPE, KIET E 04/04/2013 THER/PROPH/DIAG IV INF, INIT J1335 KRISTIN ESTEBAN MD, KIET E 04/04/2013 INJECTION J1642 HEP INJECTION EULALIA GUADALUPE, KIET E 04/04/2013 J7050 NS SOLUTION EULLAIA GUADALUPE, KIET Concepcion 04/04/2013 250 CC INFUSION J1335 KRISTIN ESTEBAN MD, KIET Concepcion 04/05/2013 INJECTION J1642 HEP INJECTION EULALIA GUADALUPE, KIET E 04/05/2013 95331 EULALIA GUADALUPE, KIET Concepcion 04/06/2013 THER/PROPH/DIAG INJ, IV PUSH J1335 KRISTIN ESTEBAN MD, KIET E 04/06/2013 INJECTION J1642 HEP INJECTION EULALIA GUADALUPE, KIET E 04/06/2013 29340 EULALIA GUADALUPE, KIET Concepcion 04/07/2013 THER/PROPH/DIAG IV INF, INIT J1335 ERTAPEREBECCA MERAZ MD, 04/07/2013 INJECTION MALLY R 30228 ROUTINE EULALIA GUADALUPE, KIET E 04/08/2013 VENIPUNCTURE 80058 REJI ESTEBAN MD, KIET E 04/08/2013 METABOLIC PANEL 59480 COMPLETE CBC, EULALIA GUADALUPE, KIET E 04/08/2013 AUTOMATED 58015 RBC SED RATE, EULALIA GUADALUPE, KIET E 04/08/2013 AUTOMATED 48971 C-REACTIVE EULALIA GUADALUPE, KIET E 04/08/2013 PROTEIN 91741 EULALIA GUADALUPE, KIET E 04/08/2013 THER/PROPH/DIAG INJ, IV PUSH J1335 ERTAPEREBECCA ESTEBAN MD, KIET E 04/08/2013 INJECTION 24963 EULALIA GUADALUPE, KIET E 04/09/2013 THER/PROPH/DIAG IV INF, INIT J1335 ERTAPEREBECCA MERAZ MD, 04/09/2013 INJECTION MALLY R 15794 EULALIA GUADALUPE, KIET E 04/10/2013 THER/PROPH/DIAG IV INF, INIT 71321 EULALIA GUADALUPE, KIET E 04/11/2013 THER/PROPH/DIAG IV INF, INIT J1335 ERTAPENEM ANA MERAZ MD, 04/11/2013 INJECTION MALLY R 20338 EULALIA GUADALUPE, KIET E 04/12/2013 THER/PROPH/DIAG IV INF, INIT J1335 ALBAAPEREBECCA MERAZ MD, 04/12/2013 INJECTION MALLY R 23308 EULALIA GUADALUPE, KIET E 04/13/2013 THER/PROPH/DIAG IV INF, INIT J1335 KRISTIN MERAZ MD, 04/13/2013 INJECTION MALLY R 43052 EULALIA GUADALUPE, KIET E 2013 THER/PROPH/DIAG IV INF, INIT J1335 KRISTIN MEARZ MD, 2013 INJECTION MALLY R J1642 HEP INJECTION ANA MERAZ MD, 2013 MALLY R 27370 TY ESTEBAN MD, KIET E 04/15/2013 VENIPUNCTURE 89580 REJI ESTEBAN MD, KIET E 04/15/2013 METABOLIC PANEL 02844 COMPLETE CBC, EULALIA GUADALUPE, KIET E 04/15/2013 AUTOMATED 67182 RBC SED RATE, KIET ESTEBAN MD E 04/15/2013 AUTOMATED 81411 C-REACTIVE KIET ESTEBAN MD E 04/15/2013 PROTEIN 55967 KIET ESTEBAN MD E 04/15/2013 THER/PROPH/DIAG IV INF, INIT 58597 KIET ESTEBAN MD E 04/16/2013 THER/PROPH/DIAG IV INF, INIT J1335 ERTJOY ESTEBAN MD, KIET E 04/16/2013 INJECTION 69379 KIET ESTEBAN MD E 04/17/2013 THER/PROPH/DIAG IV INF, INIT J1335 KIET CHAMBERS MD E 04/17/2013 INJECTION 63296 KIET ESTEBAN MD E 04/18/2013 THER/PROPH/DIAG IV INF, INIT J1335 KIET CHAMBERS MD E 04/18/2013 INJECTION 43210 KIET ESTEBAN MD E 04/19/2013 THER/PROPH/DIAG IV INF, INIT J1335 KIET CHAMBERS MD E 04/19/2013 INJECTION 45768 KIET ESTEBAN MD E 04/20/2013 THER/PROPH/DIAG IV INF, INIT J1335 KIET CHAMBERS MD E 04/20/2013 INJECTION 95456 KIET ESTEBAN MD E 04/21/2013 THER/PROPH/DIAG IV INF, INIT J1335 KIET CHAMBERS MD E 04/21/2013 INJECTION J1642 HEP INJECTION KIET ESTEBAN MD E 04/21/2013 29130 COMPREHEN KIET ESTEBAN MD E 04/22/2013 METABOLIC PANEL 70498 COMPLETE CBC, KIET ESTEBAN MD E 04/22/2013 AUTOMATED 46194 RBC SED RATE, KIET ESTEBAN MD E 04/22/2013 AUTOMATED 67190 C-REACTIVE KIET ESTEBAN MD E 04/22/2013 PROTEIN 48139 KIET ESTEBAN MD E 04/22/2013 THER/PROPH/DIAG IV INF, INIT J1335 KIET CHAMBERS MD E 04/22/2013 INJECTION 93598 KIET ESTEBAN MD 04/23/2013 THER/PROPH/DIAG INJ, IV PUSH J1335 KRISTIN ESTEBAN MD, KIET E 04/23/2013 INJECTION 03925 EULALIA GUADALUPE, KIET E 04/24/2013 THER/PROPH/DIAG IV INF, INIT J1335 KRISTIN ESTEBAN MD, KIET E 04/24/2013 INJECTION 38153 EULALIA GUADALUPE, KIET E 04/25/2013 THER/PROPH/DIAG INJ, IV PUSH J1335 KRISTIN ESTEBAN MD, KIET E 04/25/2013 INJECTION 17483 EULALIA GUADALUPE, KIET E 04/26/2013 THER/PROPH/DIAG IV INF, INIT J1335 KRISTIN ESTEBAN MD, KIET E 04/26/2013 INJECTION 30199 EULALIA GUADALUPE, KIET E 04/27/2013 THER/PROPH/DIAG IV INF, INIT J1335 KRISTIN ESTEBAN MD, KIET E 04/27/2013 INJECTION 12790Ness ESTEBAN MD, KIET E 04/28/2013 THER/PROPH/DIAG IV INF, INIT J1335 KRISTIN ESTEBAN MD, KIET E 04/28/2013 INJECTION 33466 COMPREHEN ANA MERAZ MD, 07/30/2013 METABOLIC PANEL MALLY R 02942 ASSAY THYROID ANA MERAZ MD, 07/30/2013 STIM HORMONE MALLY R 31916 COMPLETE CBC, ANA MERAZ MD, 07/30/2013 AUTOMATED MALLY R 78285 PT EVALUATION ANA MERAZ MD, 09/23/2013 MALLY R 87657 ULTRASOUND ANA MERAZ MD, 09/23/2013 THERAPY MALLY R G0283 Elec stim ANA MERAZ MD, 09/23/2013 other than wound MALLY R 61514 ULTRASOUND ANA MERAZ MD, 09/25/2013 THERAPY MALLY R G0283 Elec stim ANA MERAZ MD, 09/25/2013 other than wound MALLY R 89137 ULTRASOUND ANA MERAZ MD, 09/27/2013 THERAPY MALLY R 43311 MANUAL ANA MERAZ MD, 09/27/2013 THERAPY MALLY R G0283 Elec stim ANA MERAZ MD, 09/27/2013 other than wound MALLY R 92478 ULTRASOUND ANA MERAZ MD, 09/30/2013 THERAPY MALLY R 40158 MANUAL ANA MERAZ MD, 09/30/2013 THERAPY MALLY R G0283 Elec stim ANA MERAZ MD, 09/30/2013 other than wound MALLY R 31288 ULTRASOUND ANA MERAZ MD, 10/02/2013 THERAPY MALLY R 30584 MANUAL ANA MERAZ MD, 10/02/2013 THERAPY MALLY R G0283 Elec stim ANA MERAZ MD, 10/02/2013 other than wound MALLY R 71530 ULTRASOUND ANA MERAZ MD, 10/04/2013 THERAPY MALLY R 54690 MANUAL ANA MERAZ MD, 10/04/2013 THERAPY MALLY R G0283 Elec stim ANA MERAZ MD, 10/04/2013 other than wound MALLY R 92548 YANA DUMONT MD, ROBERTO R 10/08/2013 [place] [address] ULTRASOUND ANA MERAZ MD, 10/08/2013 THERAPY MALLY R 48753 MANUAL ANA MERAZ MD, 10/08/2013 THERAPY MALLY R G0283 Elec stim ANA MERAZ MD, 10/08/2013 other than wound MALLY R 09222 ULTRASOUND ANA MERAZ MD, 10/10/2013 THERAPY MALLY R 27645 MANUAL ANA MERAZ MD, 10/10/2013 THERAPY MALLY R G0283 Elec stim ANA MERAZ MD, 10/10/2013 other than wound MALLY R 46917 ULTRASOUND ANA MERAZ MD, 10/14/2013 THERAPY MALYL R 52602 MANUAL ANA MERAZ MD, 10/14/2013 THERAPY MALLY R G0283 Elec stim ANA MERAZ MD, 10/14/2013 other than wound MALLY R 64134 ULTRASOUND ANA MERAZ MD, 10/16/2013 THERAPY MALLY R 35105 MANUAL ANA MERAZ MD, 10/16/2013 THERAPY MALLY R G0283 Elec stim ANA MERAZ MD, 10/16/2013 other than wound MALLY R G0121 COLON CA CARLITO DUMONT MD, ROBERTO R 10/18/2013 [place] [address] ULTRASOUND ANA MERAZ MD, 10/21/2013 THERAPY MALLY R 52993 MANUAL ANA MERAZ MD, 10/21/2013 THERAPY MALLY R G0283 Elec stim ANA MERAZ MD, 10/21/2013 other than wound MALLY R 14165 ULTRASOUND ANA MERAZ MD, 10/23/2013 THERAPY MALLY R 97748 MANUAL ANA MERAZ MD, 10/23/2013 THERAPY MALLY R G0283 Elec stim ANA MERAZ MD, 10/23/2013 other than wound MALLY R 41557 METABOLIC ANA MERAZ MD, 12/24/2014 PANEL TOTAL CA MALLY R 17947 COMPLETE CBC, ANA MERAZ MD, 12/24/2014 AUTOMATED MALLY R 39596 PT EVALUATION ANA MERAZ MD, 01/28/2015 MALLY R 35020 ULTRASOUND ANA MERAZ MD, 01/28/2015 THERAPY MALLY R 10475 THERAPEUTIC ANA MERAZ MD, 01/28/2015 ACTIVITIES MALLY R G0283 ELEC STIM ANA MERAZ MD, 01/28/2015 OTHER THAN WOUND MALLY R 57663 ULTRASOUND ANA MERAZ MD, 01/30/2015 THERAPY MALLY R 53436 JULIO MERAZ MD, 01/30/2015 THERAPY MALYL R G0283 ELEC STIM ANA MERAZ MD, 01/30/2015 OTHER THAN WOUND MALLY R 22628 ULTRASOUND ANA MERAZ MD, 02/02/2015 THERAPY MALLY R 61471 JULIO MERAZ MD, 02/02/2015 THERAPY MALLY R G0283 ELEC STIM ANA MERAZ MD, 02/02/2015 OTHER THAN WOUND MALLY R 93906 ULTRASOUND ANA MERAZ MD, 02/03/2015 THERAPY MALLY R 91019 JULIO MERAZ MD, 02/03/2015 THERAPY MALLY R G0283 ELEC STIM ANA MERAZ MD, 02/03/2015 OTHER THAN WOUND MALLY R 19553 ULTRASOUND ANA MERAZ MD, 02/05/2015 THERAPY MALLY R 92083 MANUAL ANA MERAZ MD, 02/05/2015 THERAPY MALLY R 28757 THERAPEUTIC ANA MERAZ MD, 02/05/2015 ACTIVITIES MALLY R G0283 ELEC STIM ANA MERAZ MD, 02/05/2015 OTHER THAN WOUND MALLY R 79066 ULTRASOUND ANA MERAZ MD, 02/09/2015 THERAPY MALLY R 53854 MANUAL ANA MERAZ MD, 02/09/2015 THERAPY MALLY R G0283 ELEC STIM ANA MERAZ MD, 02/09/2015 OTHER THAN WOUND MALLY R 82922 ULTRASOUND ANA MERAZ MD, 02/10/2015 THERAPY MALLY R 22622 MANUAL ANA MERAZ MD, 02/10/2015 THERAPY MALLY R G0283 ELEC STIM ANA MERAZ MD, 02/10/2015 OTHER THAN WOUND MALLY R 76671 ULTRASOUND ANA MERAZ MD, 02/12/2015 THERAPY MALLY R 22662 MANUAL ANA MERAZ MD, 02/12/2015 THERAPY MALLY R G0283 ELEC STIM ANA MERAZ MD, 02/12/2015 OTHER THAN WOUND MALLY R 75944 MASOUD MERAZ MD, 02/18/2015 THERAPY MALLY R 00719 MANUAL ANA MERAZ MD, 02/18/2015 THERAPY MALLY R G0283 ELEC STIM ANA MERAZ MD, 02/18/2015 OTHER THAN WOUND MALLY R 70246 MASOUD MERAZ MD, 02/20/2015 THERAPY MALLY R 84194 MANUAL ANA MERAZ MD, 02/20/2015 THERAPY MALLY R G0283 ELEC STIM ANA MERAZ MD, 02/20/2015 OTHER THAN WOUND MALLY R 94343 MASOUD MERAZ MD, 02/23/2015 THERAPY MALLY R 65993 MANUAL ANA MERAZ MD, 02/23/2015 THERAPY MALLY R G0283 ELEC STIM ANA MERAZ MD, 02/23/2015 OTHER THAN WOUND MALLY R 37564 ULTRASOUND ANA MERAZ MD, 02/25/2015 THERAPY MALLY R 84939 MANUAL ANA MERAZ MD, 02/25/2015 THERAPY MALLY R G0283 ELEC STIM ANA MERAZ MD, 02/25/2015 OTHER THAN WOUND MALLY R 32431 ULTRASOUND ANA MERAZ MD, 03/02/2015 THERAPY MALLY R 02683 MANUAL ANA MERAZ MD, 03/02/2015 THERAPY MALLY R G0283 ELEC STIM ANA MERAZ MD, 03/02/2015 OTHER THAN WOUND MALLY R 08729 ULTRASOUND ANA MREAZ MD, 03/04/2015 THERAPY MALLY R 12728 MANUAL ANA MERAZ MD, 03/04/2015 THERAPY MALLY R G0283 ELEC STIM ANA MERAZ MD, 03/04/2015 OTHER THAN WOUND MALLY R 94459 ULTRASOUND ANA MERAZ MD, 03/09/2015 THERAPY MALLY R 25712 MANUAL ANA MERAZ MD, 03/09/2015 THERAPY MALLY R G0283 ELEC STIM ANA MERAZ MD, 03/09/2015 OTHER THAN WOUND MALLY R 98085 ULTRASOUND ANA MERAZ MD, 03/11/2015 THERAPY MALLY R 14070 THERAPEUTIC ANA MERAZ MD, 03/11/2015 EXERCISES MALLY R 35630 JULIO MERAZ MD, 03/11/2015 THERAPY MALLY R G0283 ELEC STIM ANA MERAZ MD, 03/11/2015 OTHER THAN WOUND MALLY R 42433 METABOLIC JULIO GARRISON 03/16/2015 [place] [address] COMPLETE CBC, JULIO GARRISON 03/16/2015 AUTOMATED 15307 PT EVALUATION DAMIR GROSS MD 05/07/2015 13248 MANUAL DAMIR GROSS MD 05/07/2015 THERAPY G0283 ELEC DAMIR EWING MD 05/07/2015 OTHER THAN WOUND 05520 DAMIR FITZPARTICK MD 05/11/2015 THERAPY G0283 ELEC STIM DAMIR GROSS MD 05/11/2015 OTHER THAN WOUND 92318 DAMIR FITZPATRICK MD 05/13/2015 THERAPY G0Eveline ELEC STIM DAMIR GROSS MD 05/13/2015 OTHER THAN WOUND 64353 MANUAL DAMIR GROSS MD 05/15/2015 THERAPY G0Nury3 ELEC STIM DAMIR GROSS MD 05/15/2015 OTHER THAN WOUND 83130 MANUAL DAMIR GROSS MD 05/18/2015 THERAPY G028Astrid ELEC STIM DAMIR GROSS MD 05/18/2015 OTHER THAN WOUND 49133 MANUAL GINNY GUADALUPE, DAMIR Higgins 05/20/2015 THERAPY G0Nury3 ELEC STIM GINNY GUADALUPE, DAMIR Higgins 05/20/2015 OTHER THAN WOUND 23123 MANUAL GINNY GUADALUPE, DAMIR Higgins 05/25/2015 THERAPY G0Nury3 ELEC STIM GINNY GUADALUPE, DAMIR Higgins 05/25/2015 OTHER THAN WOUND 66834 JULIO GROSS MD, DAMIR Higgins 05/28/2015 THERAPY G0Eveline ELEC STIM GINNY GUADALUPE, DAMIR Higgins 05/28/2015 OTHER THAN WOUND 39241 JULIO GROSS MD, DAMIR Higgins 06/02/2015 THERAPY G0Nury3 ELEC STIM GINNY GUADALUPE, DAMIR Higgins 06/02/2015 OTHER THAN WOUND 87894 JULIO GROSS MD, DAMIR Higgins 06/04/2015 THERAPY G0Eveline ELEC STIM GINNY GUADALUPE, DAMIR Higgins 06/04/2015 OTHER THAN WOUND 85587 THERAPEUTIC GINNY GUADALUPE, DAMIR Higgins 06/09/2015 EXERCISES 91378 JULIO GROSS MD, DAMIR Higgins 06/09/2015 THERAPY 11045 JULIO GROSS MD, DAMIR Higgins 06/16/2015 THERAPY G0Nury3 ELEC STIM GINNY GUADALUPE, DAMIR Higgins 06/16/2015 OTHER THAN WOUND 67286 JULIO GROSS MD, DAMIR Higgins 06/19/2015 THERAPY G0Nury3 ELEC STIM GINNY GUADALUPE, DAMIR Higgins 06/19/2015 OTHER THAN WOUND 82295 METABOLIC ANA MERAZ MD, 02/16/2016 PANEL TOTAL CA MALLY R DAMIR Cooper 08/08/2016 [id number] Tomography (CT Scan) of Spi 74115 METABOLIC ANA MERAZ MD, 11/22/2016 PANEL TOTAL CA MALLY R 42062 COMPLETE CBC, ANA MERAZ MD, 11/22/2016 AUTOMATED MALLY R 51006 PROTHROMBIN ANA MERAZ MD, 11/22/2016 TIME MALLY R 61725 HEPATIC ANA MERAZ MD, 12/27/2016 FUNCTION PANEL MALLY R Results Test Result Range CBC - 03/11/13 11:05 Granulocyte # 3.9 x10^3 3.0-7.0 Granulocyte % 60.8 % 50-70 HCT 34.9 % 37.0-47.0 HGB 11.9 G/DL 12.0-16.0 Lymph # 1.8 x10^3 1.0-4.0 Lymph % 30.7 % 20-50 MCH 34.5 PG 27.0-31.0 MCHC 34.0 G/DL 32.0-36.0 MCV 101 FL 81-99 Randolph # 0.5 x10^3 0.0-0.8 Randolph % 8.5 % 1.0-9.0 MPV 7.1 FL 6.0-10.0 Platelet 444 x10^3 150-400 RBC 3.44 x10^3 4.20-5.40 RDW 13.6 % 10.0-13.0 WBC 6.2 x10^3 4.8-10.8 Comprehensive Metabolic Panel - 03/11/13 11:05 Sodium 140 MMOLL 134-145 Potassium 4.1 MMOLL 3.6-5.0 Chloride 102 MMOLL 98-107 CO2 26 MMOLL 22-30 Glucose 105 MG/DL 75-110 BUN 5 MG/DL 9-20 Creatinine .6 MG/DL 0.8-1.7 Calcium 9.6 MG/DL 8.4-10.2 T Bili .3 MG/DL 0.2-1.3 T. Protein 6.8 G/DL 6.3-8.2 A/G Ratio 1.0 RATIO Albumin 3.5 G/DL 3.5-5.0 Alk Phos 124 U/L 38-126 ALT 31 U/L 11-66 AST 28 U/L 14-36 Sed Rate (ESR) - 03/11/13 11:05 Sed Rate (ESR) 56 MM/hr 0-20 C-Reactive Protein - 03/11/13 11:05 C-Reactive Protein 1.4 mg/dL <0.5 CBC - 03/18/13 10:10 Granulocyte # 3.5 x10^3 3.0-7.0 Granulocyte % 58.4 % 50-70 HCT 37.8 % 37.0-47.0 HGB 12.7 G/DL 12.0-16.0 Lymph # 1.9 x10^3 1.0-4.0 Lymph % 33.3 % 20-50 MCH 33.9 PG 27.0-31.0 MCHC 33.6 G/DL 32.0-36.0 MCV 101 FL 81-99 Randolph # 0.4 x10^3 0.0-0.8 Randolph % 8.3 % 1.0-9.0 MPV 7.7 FL 6.0-10.0 Platelet 474 x10^3 150-400 RBC 3.74 x10^3 4.20-5.40 RDW 13.5 % 10.0-13.0 WBC 5.8 x10^3 4.8-10.8 Comprehensive Metabolic Panel - 03/18/13 10:10 Sodium 141 MMOLL 134-145 Potassium 4.1 MMOLL 3.6-5.0 Chloride 103 MMOLL 98-107 CO2 26 MMOLL 22-30 Glucose 111 MG/DL 75-110 BUN 10 MG/DL 9-20 Creatinine .7 MG/DL 0.8-1.7 Calcium 9.3 MG/DL 8.4-10.2 T Bili .3 MG/DL 0.2-1.3 T. Protein 7.3 G/DL 6.3-8.2 A/G Ratio 1.0 RATIO Albumin 3.6 G/DL 3.5-5.0 Alk Phos 104 U/L 38-126 ALT 26 U/L 11-66 AST 30 U/L 14-36 Sed Rate (ESR) - 03/18/13 10:10 Sed Rate (ESR) 26 MM/hr 0-20 C-Reactive Protein - 03/18/13 10:10 C-Reactive Protein < 0.5 mg/dL <0.5 CBC - 03/25/13 15:40 Granulocyte # 3.9 x10^3 3.0-7.0 Granulocyte % 68.8 % 50-70 HCT 35.3 % 37.0-47.0 HGB 11.8 G/DL 12.0-16.0 Lymph # 1.3 x10^3 1.0-4.0 Lymph % 23.9 % 20-50 MCH 33.4 PG 27.0-31.0 MCHC 33.4 G/DL 32.0-36.0 MCV 100 FL 81-99 Randolph # 0.3 x10^3 0.0-0.8 Randolph % 7.3 % 1.0-9.0 MPV 7.5 FL 6.0-10.0 Platelet 287 x10^3 150-400 RBC 3.53 x10^3 4.20-5.40 RDW 13.7 % 10.0-13.0 WBC 5.5 x10^3 4.8-10.8 Sed Rate (ESR) - 03/25/13 15:40 Sed Rate (ESR) 16 MM/hr 0-20 Comprehensive Metabolic Panel - 03/25/13 15:40 Sodium 141 MMOLL 134-145 Potassium 4.5 MMOLL 3.6-5.0 Chloride 102 MMOLL 98-107 CO2 28 MMOLL 22-30 Glucose 93 MG/DL 75-110 BUN 13 MG/DL 9-20 Creatinine .9 MG/DL 0.8-1.7 Calcium 9.5 MG/DL 8.4-10.2 T Bili .5 MG/DL 0.2-1.3 T. Protein 7.0 G/DL 6.3-8.2 A/G Ratio 1.1 RATIO Albumin 3.7 G/DL 3.5-5.0 Alk Phos 107 U/L 38-126 ALT 40 U/L 11-66 AST 50 U/L 14-36 C-Reactive Protein - 03/25/13 15:40 C-Reactive Protein < 0.5 mg/dL <0.5 CBC - 04/01/13 13:15 Granulocyte # 3.0 x10^3 3.0-7.0 Granulocyte % 56.4 % 50-70 HCT 36.8 % 37.0-47.0 HGB 11.8 G/DL 12.0-16.0 Lymph # 1.7 x10^3 1.0-4.0 Lymph % 33.5 % 20-50 MCH 32.1 PG 27.0-31.0 MCHC 32.1 G/DL 32.0-36.0 MCV 100 FL 81-99 Randolph # 0.5 x10^3 0.0-0.8 Randolph % 10.1 % 1.0-9.0 MPV 8.6 FL 6.0-10.0 Platelet 189 x10^3 150-400 RBC 3.69 x10^3 4.20-5.40 RDW 13.7 % 10.0-13.0 WBC 5.2 x10^3 4.8-10.8 Sed Rate (ESR) - 04/01/13 13:15 Sed Rate (ESR) 12 MM/hr 0-20 Comprehensive Metabolic Panel - 04/02/13 13:15 Sodium 140 MMOLL 134-145 Potassium 4.2 MMOLL 3.6-5.0 Chloride 101 MMOLL 98-107 CO2 27 MMOLL 22-30 Glucose 113 MG/DL 75-110 BUN 12 MG/DL 9-20 Creatinine 1.0 MG/DL 0.8-1.7 Calcium 9.2 MG/DL 8.4-10.2 T Bili .4 MG/DL 0.2-1.3 T. Protein 6.9 G/DL 6.3-8.2 A/G Ratio 1.2 RATIO Albumin 3.7 G/DL 3.5-5.0 Alk Phos 105 U/L 38-126 ALT 46 U/L 11-66 AST 39 U/L 14-36 C-Reactive Protein - 04/02/13 13:15 C-Reactive Protein < 0.5 mg/dL <0.5 Lipid Profile - 04/03/13 11:10 HDL 56 MG/DL 40-60 LDL Calculated 102 MG/DL 30-100 Triglyceride 187 MG/DL < 200 VLDL 37 Chol/HDL 3.49 RATIO 0.00-5.00 Cholesterol 196 MG/DL 130-170 CBC - 04/08/13 12:45 Granulocyte # 3.7 x10^3 3.0-7.0 Granulocyte % 60.7 % 50-70 HCT 37.3 % 37.0-47.0 HGB 12.2 G/DL 12.0-16.0 Lymph # 1.8 x10^3 1.0-4.0 Lymph % 32.5 % 20-50 MCH 32.5 PG 27.0-31.0 MCHC 32.6 G/DL 32.0-36.0 MCV 100 FL 81-99 Randolph # 0.3 x10^3 0.0-0.8 Randolph % 6.8 % 1.0-9.0 MPV 7.8 FL 6.0-10.0 Platelet 228 x10^3 150-400 RBC 3.74 x10^3 4.20-5.40 RDW 13.7 % 10.0-13.0 WBC 5.8 x10^3 4.8-10.8 Comprehensive Metabolic Panel - 04/08/13 12:45 Sodium 142 MMOLL 134-145 Potassium 4.0 MMOLL 3.6-5.0 Chloride 101 MMOLL 98-107 CO2 27 MMOLL 22-30 Glucose 92 MG/DL 75-110 BUN 9 MG/DL 9-20 Creatinine .7 MG/DL 0.8-1.7 Calcium 9.5 MG/DL 8.4-10.2 T Bili .6 MG/DL 0.2-1.3 T. Protein 7.4 G/DL 6.3-8.2 A/G Ratio 1.2 RATIO Albumin 4.1 G/DL 3.5-5.0 Alk Phos 115 U/L 38-126 ALT 42 U/L 11- AST 39 U/L 14- Sed Rate (ESR) - 04/08/13 12:45 Sed Rate (ESR) 9 MM/hr 0-20 C-Reactive Protein - 04/08/13 12:45 C-Reactive Protein < 0.5 mg/dL <0.5 Comprehensive Metabolic Panel - 04/15/13 16:00 Sodium 139 MMOLL 134-145 Potassium 4.1 MMOLL 3.6-5.0 Chloride 102 MMOLL 98-107 CO2 28 MMOLL 22-30 Glucose 99 MG/DL 75-110 BUN 15 MG/DL 9-20 Creatinine .8 MG/DL 0.8-1.7 Calcium 9.3 MG/DL 8.4-10.2 T Bili .6 MG/DL 0.2-1.3 T. Protein 6.8 G/DL 6.3-8.2 A/G Ratio 1.1 RATIO Albumin 3.6 G/DL 3.5-5.0 Alk Phos 101 U/L 38-126 ALT 39 U/L 11-66 AST 37 U/L 14- CBC - 04/15/13 16:00 Eos # 0.23 x10^3 0-0.5 Eos % 4.5 % 0-4 HCT 35.3 % 37.0-47.0 HGB 11.8 G/DL 12.0-16.0 Lymph # 1.58 x10^3 1.0-4.0 Lymph % 31.1 % 20-50 MCH 33.2 PG 27.0-31.0 MCHC 33.4 G/DL 32.0-36.0 MCV 99.4 FL 81-99 Randolph # 0.92 x10^3 0.0-0.8 Randolph % 18.1 % 1.0-9.0 MPV 10.3 FL 6.0-10.0 Platelet 280 x10^3 150-400 RBC 3.55 x10^3 4.20-5.40 RDW 12.2 % 12-15 WBC 5.08 x10^3 4.8-10.8 Baso # 0.04 x10^3 0-0.2 Baso % 0.8 % 0-2 Neut % 45.5 % 50-70 Neut # 2.31 x10^3 3.0-7.0 Sed Rate (ESR) - 04/15/13 16:00 Sed Rate (ESR) 6 MM/hr 0-20 C-Reactive Protein - 04/15/13 16:00 C-Reactive Protein < 0.5 mg/dL <0.5 CBC - 04/22/13 13:30 Eos # 0.17 x10^3 0-0.5 Eos % 2.7 % 0-4 HCT 37.4 % 37.0-47.0 HGB 12.4 G/DL 12.0-16.0 Lymph # 1.60 x10^3 1.0-4.0 Lymph % 25.8 % 20-50 MCH 33.0 PG 27.0-31.0 MCHC 33.2 G/DL 32.0-36.0 MCV 99.5 FL 81-99 Randolph # 0.75 x10^3 0.0-0.8 Randolph % 12.1 % 1.0-9.0 MPV 10.2 FL 6.0-10.0 Platelet 267 x10^3 150-400 RBC 3.79 x10^3 4.20-5.40 RDW 12.3 % 12-15 WBC 6.21 x10^3 4.8-10.8 Baso # 0.03 x10^3 0-0.2 Baso % 0.5 % 0-2 Neut % 58.9 % 50-70 Neut # 3.66 x10^3 3.0-7.0 Comprehensive Metabolic Panel - 04/22/13 13:30 Sodium 138 MMOLL 134-145 Potassium 3.8 MMOLL 3.6-5.0 Chloride 99 MMOLL 98-107 CO2 26 MMOLL 22-30 Glucose 127 MG/DL 75-110 BUN 14 MG/DL 9-20 Creatinine .9 MG/DL 0.8-1.7 Calcium 9.5 MG/DL 8.4-10.2 T Bili .7 MG/DL 0.2-1.3 T. Protein 7.1 G/DL 6.3-8.2 A/G Ratio 1.2 RATIO Albumin 3.9 G/DL 3.5-5.0 Alk Phos 103 U/L 38-126 ALT 32 U/L 11-66 AST 28 U/L 14-36 Sed Rate (ESR) - 04/22/13 13:30 Sed Rate (ESR) 7 MM/hr 0-20 C-Reactive Protein - 04/22/13 13:30 C-Reactive Protein < 0.5 mg/dL <0.5 CBC - 07/30/13 12:50 Eos # 0.17 x10^3 0-0.5 Eos % 2.8 % 0-4 HCT 39.1 % 37.0-47.0 HGB 12.9 G/DL 12.0-16.0 Lymph # 2.00 x10^3 1.0-4.0 Lymph % 33.3 % 20-50 MCH 34.2 PG 27.0-31.0 MCHC 33.0 G/DL 32.0-36.0 MCV 103.7 FL 81-99 Randolph # 0.77 x10^3 0.0-0.8 Randolph % 12.8 % 1.0-9.0 MPV 11.2 FL 6.0-10.0 Platelet 238 x10^3 150-400 RBC 3.77 x10^3 4.20-5.40 RDW 12.3 % 12-15 WBC 6.00 x10^3 4.8-10.8 Baso # 0.03 x10^3 0-0.2 Baso % 0.5 % 0-2 Neut % 50.6 % 50-70 Neut # 3.03 x10^3 3.0-7.0 Comprehensive Metabolic Panel - 07/30/13 12:50 Sodium 135 MMOLL 134-145 Potassium 4.0 MMOLL 3.6-5.0 Chloride 100 MMOLL 98-107 CO2 28 MMOLL 22-30 Glucose 97 MG/DL 75-110 BUN 15 MG/DL 9-20 Creatinine .8 MG/DL 0.8-1.7 Calcium 9.7 MG/DL 8.4-10.2 T Bili .8 MG/DL 0.2-1.3 T. Protein 7.2 G/DL 6.3-8.2 A/G Ratio 1.4 RATIO Albumin 4.2 G/DL 3.5-5.0 Alk Phos 111 U/L 38-126 ALT 34 U/L 11-66 AST 35 U/L 14-36 TSH - 07/30/13 12:50 TSH 1.32 UIUML 0.50-6.00 CBC - 12/24/14 11:33 Eos # 0.20 x10^3 0-0.5 Eos % 3.1 % 0-4 HCT 40.0 % 37.0-47.0 HGB 13.1 G/DL 12.0-16.0 Lymph # 1.79 x10^3 1.0-4.0 Lymph % 27.8 % 20-50 MCH 33.9 PG 27.0-31.0 MCHC 32.8 G/DL 32.0-36.0 MCV 103.6 FL 81-99 Randolph # 0.98 x10^3 0.0-0.8 Randolph % 15.2 % 1.0-9.0 MPV 11.2 FL 6.0-10.0 Platelet 219 x10^3 150-400 RBC 3.86 x10^3 4.20-5.40 RDW 11.8 % 12-15 WBC 6.44 x10^3 4.8-10.8 Baso # 0.02 x10^3 0-0.2 Baso % 0.3 % 0-2 Neut % 53.6 % 50-70 Neut # 3.45 x10^3 3.0-7.0 Basic Metabolic Panel - 12/24/14 11:57 Sodium 138 MMOLL 134-145 Potassium 4.3 MMOLL 3.6-5.0 Chloride 99 MMOLL 98-107 CO2 28 MMOLL 22-30 Glucose 119 MG/DL 75-110 BUN 9 MG/DL 9-20 Creatinine .7 MG/DL 0.8-1.7 Calcium 9.6 MG/DL 8.4-10.2 Basic Metabolic Panel - 02/16/16 14:35 Sodium 140 MMOLL 134-145 Potassium 4.3 MMOLL 3.6-5.0 Chloride 99 MMOLL 98-107 CO2 29 MMOLL 22-30 Glucose 104 MG/DL 75-110 BUN 11 MG/DL 9-20 Creatinine .82 MG/DL 0.8-1.7 Calcium 9.5 MG/DL 8.4-10.2 EGFR 68 MLMIN CBC - 11/22/16 12:38 Eos # 0.27 x10^3 0-0.5 Eos % 5.0 % 0-4 HCT 40.2 % 37.0-47.0 HGB 13.1 G/DL 12.0-16.0 Lymph # 1.64 x10^3 1.0-4.0 Lymph % 30.4 % 20-50 MCH 32.2 PG 27.0-31.0 MCHC 32.6 G/DL 32.0-36.0 MCV 98.8 FL 81-99 Randolph # 0.80 x10^3 0.0-0.8 Randolph % 14.8 % 1.0-9.0 MPV 11.7 FL 6.0-10.0 Platelet 183 x10^3 150-400 RBC 4.07 x10^3 4.20-5.40 RDW 12.9 % 12-15 WBC 5.40 x10^3 4.8-10.8 Baso # 0.03 x10^3 0-0.2 Baso % 0.6 % 0-2 Neut % 49.2 % 50-70 Neut # 2.66 x10^3 3.0-7.0 Protime - 11/22/16 12:39 INR 1.0 Protime 10.7 SEC 9.5-12.3 Basic Metabolic Panel - 11/22/16 12:40 Sodium 138 MMOLL 134-145 Potassium 3.9 MMOLL 3.6-5.0 Chloride 100 MMOLL 98-107 CO2 26 MMOLL 22-30 Glucose 114 MG/DL 75-110 BUN 10 MG/DL 9-20 Creatinine .70 MG/DL 0.8-1.7 Calcium 9.3 MG/DL 8.4-10.2 EGFR 81 MLMIN Comprehensive metabolic panel - 12/12/16 05:14 Sodium measurement 94 70-110 CARBON DIOXIDE 30 22-29 Serum or plasma anion gap 8.6 3-15 BLOOD UREA NITROGEN 6 7-18 CREATININE SERUM 0.61 0.6-1.2 Brucella species antibody panel (IgG, IgM) 10 10-20 Estimated glomerular filtration rate (GFR) 115.4 [place] Estimated glomerular filtration rate (GFR) 95.4 non- OSMOLALITY,CALCULATED 271 280-300 CALCIUM 8.6 8.8-10.8 Calculated ionized calcium measurement 4.2 3.8-4.6 BILIRUBIN,TOTAL 1.3 0.1-1.0 Serum or plasma alkaline phosphatase measurement 68 38-126 ASPARTATE AMINO TRANSFERASE 236 15-37 ALANINE AMINOTRANSFERASE 206 30-65 Serum or plasma total protein measurement 6.0 6.4-8.5 Serum or plasma albumin measurement 2.9 3.4-5.0 Serum or plasma albumin/globulin mass ratio 0.935 1.1-1.8 HEPATITIS PANEL - 12/12/16 05:14 Serum or plasma hepatitis A virus IgM antibody Negative detection by immunoassay Serum or plasma hepatitis B virus core IgM antibody Negative detection by immunoassay * Serum or plasma hepatitis C virus antibody Negative signal/cutoff by immunoassay Hepatic Function Panel - 12/28/16 08:12 I Bili .5 MG/DL 0.0-1.1 T Bili .7 MG/DL 0.2-1.3 T. Protein 6.7 G/DL 6.3-8.2 Albumin 3.5 G/DL 3.5-5.0 Alk Phos 123 U/L 38-126 ALT 37 U/L 11-66 AST 39 U/L 14-36 D Bili 0.0 MG/DL 0.0-0.3 Hepatic Function Panel - 01/13/17 13:34 I Bili .4 MG/DL 0.0-1.1 T Bili .7 MG/DL 0.2-1.3 T. Protein 6.7 G/DL 6.3-8.2 Albumin 3.6 G/DL 3.5-5.0 Alk Phos 115 U/L 38-126 ALT 20 U/L 11-66 AST 27 U/L 14-36 D Bili 0.0 MG/DL 0.0-0.3 Infl A & B - 09/05/17 16:00 Influenza A Ab Negative "" Negative Influenza B Ab Negative "" Negative CMP - 09/06/17 09:55 Breakpoint +++++++++++++++ "" CBC w/ Auto Diff - 09/06/17 09:55 Differential? No "" WBC 6.95 "" 4.80-10.80 RBC 3.65 x10 4.20-5.40 Hgb 11.9 gm/dL 12.0-16.0 Hct 35.1 % 37.0-47.0 MCV 96 fL 81-99 MCH 32.6 pg 27.0-31.0 MCHC 33.9 gm/dL 32.0-36.0 RDW 12 % 12-15 Platelet 243 x10 150-400 MPV 10.7 fL 6.0-10.0 .Auto Diff - 09/06/17 09:55 Neutro Auto 75.3 % 50.0-70.0 Lymph Auto 12.8 % 20.0-50.0 Randolph Auto 10.4 % 1.0-9.0 Eos Auto 1.2 % 0.0-4.0 Basophil Auto 0.3 % 0.0-2.0 Neutro Absolute 5.2 x10 3.0-7.0 Lymph Absolute 0.9 x10 1.0-4.0 Randolph Absolute 0.7 x10 0.0-0.8 Eos Absolute 0.1 x10 0.0-0.5 Baso Absolute 0.0 x10 0.0-0.2 Encounters ACCT No. Visit Discharge Status Pt. Provider Facility Loc./Unit Complaint Date/Time Type [id number] 03/06/2013 03/08/2013 DIS Sage Barrios MD, [facility] F8SE [id number] 05:20:00 13:30:00 [facility] [id number] 01/09/2013 01/09/2013 GABI Barrios MD, [facility] F3E 862 08:11:00 12:37:00 [facility] [id number] 07/05/2016 07/05/2016 CLS Preadmi Leisa Gross PT WEAKNESS [id number] 11:15:00 23:59:59 [facility] [id number] 06/23/2016 07/04/2016 DIS OutLeisa Seymour PT WEAKNESS 0075 09:00:00 00:01:00 [facility] [id number] 10/13/2015 10/13/2015 CLS Outpati Ana DeL a Fuente RAD RT BREAST 3361 13:51:00 23:59:59 [facility] MICROCALCIFI Mally CATION/ASYMM ETRY--EXTRA VIEW [id number] 10/01/2015 10/01/2015 CLS Outpati Ullom De La Fuente RAD MAMMO 0392 10:56:00 23:59:59 [facility] SCREENING - Mally Z12.31 [id number] 03/18/2014 03/18/2014 CLS Outpati Ultovam De La Fuente RAD 6 MO F/ U RT 8835 09:54:00 23:59:59 [facility] BREAST Mally CALCIFICATIO NS [id number] 09/06/2013 09/06/2013 CLS Outpati Ullom De La Fuente RAD MICROCALCIFI 0429 09:42:00 23:59:59 [facility] CATIONS RT Mally BREAST EXTRA VIEWS [id number] 08/23/2013 08/23/2013 CLS Outpati Ana De La Fuente RAD SCREENING 3152 07:53:00 23:59:59 [facility] [id number] 04/15/2013 04/15/2013 CLS Outpati Leisa Gross RAD 7957 07:34:00 23:59:59 [facility] [id number] 12/11/2016 ACT Inpatie BLOUSTINE Leisa MED/SURG SKILLED SWB; 3547 16:15:00 nt , [facility] Page [id number] 09/19/2014 [facility] 5930 09:41:00 t Registr ation [id number] 12/07/2012 [facility] 9775 09:52:00 t Registr ation [id number] 09/11/2012 [facility] 9313 15:48:00 t Registr ation [id number] 06/13/2012 [facility] 5527 06:54:00 t Registr ation [id number] 05/20/2012 [facility] 4407 18:45:00 t Registr ation [id number] 01/13/2017 01/13/2017 DIS Outpati ULLOM [place] ALAB 12:44:00 12:44:00 ent KT Vega MD, [facility] R [id number] 12/28/2016 12/28/2016 DIS Outpati ULLOM [place] ALAB 07:34:00 07:34:00 ent KT Vega MD, [facility] R [id number] 11/22/2016 11/22/2016 DIS Outpati ULLOM [place] ALAB 12:16:00 12:16:00 ent KT Vega MD, [facility] R [id number] 02/16/2016 02/16/2016 DIS Outpati ULLOM [place] ALAB 14:09:00 14:09:00 ent KT Vega MD, [facility] [id number] 07/17/2015 08/16/2015 DIS Sage GROSS MD, 42 00:01:00 23:59:00 ent DAMIR Higgins [id number] 06/16/2015 07/16/2015 DIS Outpiotr GROSS MD, 34 00:01:00 23:59:00 ent DAMIR Higgins [id number] 05/17/2015 06/15/2015 DIS Outpati GINNY GUADALUPE, 26 00:01:00 23:59:00 dimas Higgins [id number] 05/07/2015 05/16/2015 DIS Outpati GINNY GUADALUPE, 18 11:24:00 23:59:00 ent DAMIR Higgins [id number] 03/17/2015 04/15/2015 DIS Outpati ULLOM 30 00:01:00 23:59:00 ent KT GUADALUPE, MALLY Thompson [id number] 02/14/2015 03/16/2015 DIS Outpati ULLOM 22 00:01:00 23:59:00 ent MALLY MERAZ MD [id number] 03/16/2015 03/16/2015 DIS Outpati ULLOM [place] PINEV 16:54:00 16:54:00 ent KT Vega MD, [facility] R [id number] 01/28/2015 02/13/2015 DIS Outpati ULLOM 14 16:14:00 23:59:00 ent MALLY MERAZ MD [id number] 12/24/2014 12/24/2014 DIS Outpati ULLOM [place] ALAB 10:47:00 10:47:00 dimas Vega MD, [facility] R [id number] 11/14/2013 12/14/2013 DIS Outpati ULLOM 36 00:01:00 23:59:00 MALLY Goldman MD [id number] 10/15/2013 11/13/2013 DIS Outpati ULLOM 28 00:01:00 23:59:00 ent MALLY MERAZ MD [id number] 10/18/2013 10/18/2013 DIS Outpiotr DUMONT MD, Madyson LIT 09:45:00 12:37:00 ent [facility] [id number] 09/23/2013 10/14/2013 DIS Outpati ULLOM 10 14:04:00 23:59:00 ent MALLY MERAZ MD [id number] 10/08/2013 10/08/2013 DIS Outpiotr DUMONT MD, Madyson ALAB 11:11:00 11:11:00 ent [facility] [id number] 07/31/2013 07/31/2013 DIS Outpati ULLOM [place] ALAB 07:33:00 07:33:00 ent KT Vega MD, [facility] R [id number] 04/16/2013 04/30/2013 GABI ESTEBAN MD, [place] [facility] 11 10:25:00 13:39:00 [facility] [id number] 04/22/2013 04/22/2013 GABI ESTEBAN MD, [place] ALAB 14:07:00 14:07:00 ent [facility] [id number] 03/17/2013 04/15/2013 DIS Outpati ULLOM [place] [facility] 15 08:34:00 16:30:00 ent KT Vega MD, [facility] R [id number] 04/15/2013 04/15/2013 GABI ESTEBAN MD, [place] ALAB 16:03:00 16:03:00 ent [facility] [id number] 04/08/2013 04/08/2013 GABI ESTEBAN MD, [place] ALAB 12:52:00 12:52:00 ent [facility] [id number] 04/03/2013 04/03/2013 DIS Outpati ULLOM [place] ALAB 11:14:00 11:14:00 ent KT Vega MD, [facility] R [id number] 04/01/2013 04/01/2013 GABI ESTEBAN MD, [place] ALAB 13:14:00 13:14:00 ent [facility] [id number] 03/25/2013 03/25/2013 GABI ESTEBAN MD, [place] ALAB 15:46:00 15:46:00 ent [facility] [id number] 03/18/2013 03/18/2013 VARGAS ESTEBAN MD, [place] ALAB 10:32:00 23:59:59 [facility] [id number] 03/09/2013 03/16/2013 DIS Outpati ULLOM [place] [facility] 09:57:00 11:17:00 ent KT Vega MD, [facility] R [id number] 03/11/2013 03/11/2013 DIS [facility] ESTEBAN MD, Madyson BRADFORD 11:18:00 11:18:00 ent [facility] [id number] 09/06/2017 Documen 09:16:00 t Registr ation [id number] 09/05/2017 Documen 15:59:00 t Registr ation [id number] 05/24/2017 05/24/2017 DIS [facility] GROSS, XR 1 07:34:00 12:34:00 ent DAMIR Higgins [id number] 08/08/2016 08/08/2016 Susan Calderon INPT NO ACC, 10:02:00 15:21:00 ent DAMIR [facility] [id number] 03/30/2016 03/30/2016 Susan Calderon RADS NO KNOWN 11:19:00 11:19:00 dimas Higgins [facility],L3-[facility] LEVEL DISEASE WITH STENOSIS L3-4 L4-5 [id number] 11/16/2015 11/16/2015 Susan BARAHONA RADS L3-4 08:59:00 08:59:00 DAMIR [facility] DISEASE WITH STENOSIS L3-4 L4-5, S/P L3-
--- NOTE | 2017-09-08 12:07 | IRU History & Physical Report ---
HPI IRU Date: Date: 09/08/17 Time: 1155 Chief complaint: I had a stroke HPI: Ms. Husain is a very pleasant 77-year-old female who lives in [place] in independent living apartment. History is obtained predominantly from the patient and somewhat from the patient's daughter who is with her in the room. She was feeling well until Monday morning, 09/05/2017. She had smelled a mouse and called the water maintenance supervisor to check it out. While he was there she suddenly felt weak and felt like she could even pass out. She was leaning against the door jam. He asked her if she was feeling well and she said that she was not. Nurse was called and blood pressure was 156/65 with pulse of 76. Appointment was made to see the doctor that afternoon at 4 PM in [place]. In the doctor's office, a urinalysis was obtained demonstrating probable UTI. She was started on Bactrim but took only 1 tablet due to nausea. Influenza screen was obtained and that was negative. She went home. The patient awakened the next day on Wednesday September 06, 2017 with a flaccid left arm. In addition the left leg felt like it would give way. She fell on 2 occasions. She called her neighbors and her daughter who lives in [place]. When her daughter arrived she was noted to have left facial droop. She was taken to the emergency room department at [place], [place]. CT scan was obtained demonstrating a bleed. Phone call was made to [facility] but due to high patient volume, they could not accept her initially. She spent some time in the emergency department at [place] and was transferred to [facility] around 4 pm that afternoon. Records obtained from [facility] indicate brain MRI 09/07/2017 demonstrating prominent intraparenchymal hemorrhage within the right frontal lobe associated with small amount of overlying subarachnoid hemorrhage. There was minimal right to left midline shift without underlying mass nor vascular malformation seen. CT angiogram of the head and neck with contrast demonstrated mild stenosis within the cavernous segment of the bilateral internal carotid arteries without high-grade stenosis dissection nor aneurysm. She was stabilized in [place]. She was by PT, OT and speech therapy. She did not demonstrate need for speech therapy intervention upon their screen. Because of multiple functional deficits, it was felt that the patient would benefit from acute inpatient rehabilitation. She has history of hypertension as well as recent UTI. The patient lives alone in [facility]. She has been independent and it is her desire to return to that environment. Prior level of functioning: She was modified independent for eating and bathing as well as toileting, bed/chair/wheelchair transfers and toilet transfers. She used a walker when she was out of about but not in her apartment. She was independent for grooming, upper and lower body dressing and walking. Current level of functioning is as follows: She requires minimum assistance for grooming, upper and lower body dressing and toileting. She requires minimum assistance for toilet transfers and maximum assistance for walking with a rolling walker 75 feet. Patient demonstrates impaired proprioception, weak booking manager strength on the left hand, reduced fine motor movement in the left hand, balance deficit and ADL deficit, coordination deficits, endurance and decreased safety awareness. The following medical conditions are noted and require active monitoring and/or management: 1. Recent acute intraparenchymal bleed left frontal region with slight midline shift resulting in left-sided weakness. 2. Hypertension 3. Recent UTI The following therapies will be needed: 1. Physical therapy: for transfers and ambulation and stairs. 2. Occupational therapy: for ADL's and transfers. 3. Medical management: for the above conditions. 4. 24 hour Rehabilitation Nursing to monitor and address the following: Close monitoring of neurologic status, blood pressure and to reduce fall risk. [facility] Medical History (Last Updated 06/01/17 @ 10:30 by Letitia Morton MA) High cholesterol (Chronic Medical) Medical History Updates: 1. Hypertension. 2. 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 3. Macular degeneration, dry. 4. Recent intraparenchymal cerebral hemorrhage Surgical History: Hernia. Compression Fracture: vertebroplasty. Fusion L3, 4 and 5 (history of four fusions). Bilateral total knee replacement. Cholecystectomy. Ventral hernia repair after gallbladder surgery. Bilateral cataract procedure. Remote appendectomy after tubal ligation. T&A age 5 Family History: Family History (Last Updated 06/01/17 @ 10:31 by Letitia Morton MA) Father Lung cancer Paternal Grandfather Stroke Mother Dementia - Social History Smoking status: Former smoker Packs per day: 1.5 (smoking the early until 1996) Packs-years: 30 Alcohol intake: current Alcohol intake frequency: 3 or more drinks per day (reportedly consumes 15 beers daily) Last drink: days (ago) (4) Housing: apartment Household members: none Current occupational status: retired Current residence: Apartment/Private Home Social history: Patient lives alone in [place] in an apartment in a assisted village. Her several years ago. She has a supportive family. 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 Review of Systems - Constitutional Constitutional: Present: fatigue. Absent: anorexia, chills, fever(s), headache( s), lethargy, malaise, night sweats, weakness, weight gain, weight loss - EEHIT Eyes: Present: blurry vision (reports vision is blurry chronically.). Absent: change in vision, diplopia Mouth/Throat: Absent: changes in swallowing, painful swallowing, change in taste , bleeding gums, change in voice - Cardiovascular Cardiovascular: Absent: chest pain, palpitations, syncope, dyspnea on exertion, orthopnea, edema, cyanosis, heart murmur Rhythm: Present: regular rhythm Vascular: Absent: intermittent claudication, pedal edema, unilateral swelling - Respiratory Respiratory: Absent: cough, dyspnea, hemoptysis, dyspnea on exertion, wheezing, pain on inspiration, chest congestion, excessive phlegm production - Gastrointestinal Gastrointestinal: Absent: abdominal pain, change in bowel habits, constipation, diarrhea, dyspepsia, dysphagia, early satiety, hematochezia, melena, nausea, vomiting - Musculoskeletal Musculoskeletal: Present: muscle weakness, myalgias. Absent: abnormal gait, arthralgias, back pain, joint swelling, limited range of motion - Integumentary/Breasts Integumentary: Absent: alopecia, erythema, lesions, pruritus, rash, jaundice - Neurological Neurological: Present: abnormal gait, focal weakness, frequent falls, weakness. Absent: abnormal movements, abnormal speech, confusion, convulsions, dizziness , headache(s), loss of vision, memory loss, numbness, paresthesias, tremor(s) - Psychiatric Psychiatric: Absent: abnormal sleep pattern, anxiety, depression - Endocrine Endocrine: Absent: cold intolerance, flushing, heat intolerance, palpitations - Hematologic/Lymphatic Hematologic/Lymphatic: Absent: easy bleeding, easy bruising, lymphadenopathy - Allergic/Immunologic Allergic/Immunologic: Absent: urticaria Medications Home Medications Medication Instructions Recorded Confirmed Type Atorvastatin Calcium 1 tab PO HS #0 tab 12/16/14 History Lisinopril 10 mg PO DAILY #0 tab 12/16/14 History Mapap Extra Strength 500 mg tablet 500 mg PO Q6H PRN 05/18/17 History Neurontin (gabapentin) 800 mg 800 mg PO TID 05/18/17 History tablet Ultram (Tramadol) 50 mg tablet 50 mg PO Q6H PRN tab 05/18/17 History Zantac (Ranitidine) 150 mg tablet 150 mg PO DAILY tab 05/18/17 History alendronate 70 mg tablet mg PO .1xw tab 05/18/17 History calcium carbonate-vitamin D3 600 cap PO BID cap 05/18/17 History mg calcium-200 unit capsule solifenacin 5 mg tablet mg PO DAILY tab 05/18/17 History cyanocobalamin (vit B-12) 1,000 1,000 mcg SQ .q4w each 06/01/17 History mcg/mL injection kit Allergies Allergy/AdvReac Type Severity Reaction Status Date / Time acetaminophen [From Percocet] Allergy Verified 06/01/17 10:24 oxycodone [From Percocet] Allergy Verified 06/01/17 10:24 Results IRU - Labs Labs: I have reviewed outside records from [facility]. Exam Vital Signs: Temperature 98.1 F 09/08/17 11:47 Pulse Rate 76 09/08/17 11:47 Respiratory Rate 16 09/08/17 11:47 Blood Pressure 149/64 H 09/08/17 11:47 Pulse Oximetry 98 09/08/17 11:47 Height/Weight/BMI: Weight 80.4 kg - Constitutional Present: no acute distress, well nourished, well developed, average body habitus , cooperative Comments: Patient is alert and oriented but appears upset. Occasional joke noted. - Routine HEENT Exam Head: Present: normocephalic, atraumatic. Absent: cushingoid faces, abrasion, laceration, hematoma Eye: Present: EOMI, PERRL. Absent: conjunctival icterus, scleral injection, periorbital swelling, nystagmus ENT: Present: mucous membranes moist, oropharynx clear - Routine Neck Exam Present: supple, full ROM, trachea midline. Absent: lymphadenopathy, thyromegaly, tenderness, swelling - Routine Chest/Breast/Axilla Exam Chest wall: Absent: tenderness, mass Axillae: Absent: lymphadenopathy, mass - Routine Respiratory Exam Present: CTA bilaterally. Absent: accessory muscle use, decreased breath sounds , prolonged expiratory phase, rales, respiratory distress, rhonchi, stridor, wheezes, crackles, distant breath sounds - Routine Cardiovascular Exam Present: RRR, S1, S2, no murmur. Absent: gallop, S3, S4, click, irregular rhythm - Routine Abdominal Exam Present: soft, normoactive bowel sounds, non distended, non tender. Absent: rebound, guarding, firm, rigid, organomegaly, mass, hernia, wound - Routine Extremities Exam Present: no edema, non tender, pulses intact, normal capillary refill. Absent: cyanosis, clubbing - Routine Back/Spine/Pelvis Exam Back/Spine: Absent: full ROM, scoliosis, kyphosis - Routine Skin Exam Present: intact, dry, warm. Absent: cyanosis, erythema, pallor, mottling, petechiae, urticaria, lesions, jaundice - Routine Neurological Exam Present: alert, oriented X3, CN II-XII intact, motor deficit (patient has reduced strength at left elbow, left wrist and booking manager strength on the left. Motor strength reduced in all fingers of left hand. Fine motor movement present but reduced in left hand. Left leg can be released against resistance at left hip but is reduced and strength. Reasonable strength plantar flexion and dorsiflexion left ankle.), moving all extremities, facial asymmetry (mild left facial droop at corner of the mouth predominantly.), normal speech - Routine Psychiatric Exam Present: normal affect, normal thought process, cooperative, good insight, good judgment. Absent: depressed, anxious Sepsis Assessment - Evaluation Severe Sepsis: none seen IRU A/P (1) Intraparenchymal hemorrhage of brain Current visit: Yes Status: Acute Patient's date of bleed was apparently 09/05/2017. She has been stabilized but has residual deficits noted. A multidisciplinary approach will be undertaken with PT, OT and 24 rehabilitation nursing management to monitor neurologic status, blood pressure and to reduce fall risk. (2) Hypertension Qualifiers: Hypertension type: essential hypertension Qualified Code(s): I10 - Essential (primary) hypertension Current visit: Yes Status: Chronic Patient will require close monitoring of blood pressure to avoid hypertension and excessive hypotension. DVT Prophylaxis: SCD's Resuscitation Status: Full Code - Course Hospital Course: Stephen Cerda MD: - Interventions to Obtain Goals PT Treatment Plan: Balance/Proprioception, Functional Activities, Gait Training , Patient/Family Education, Therapeutic Exercise OT Treatment Plan: ADL (Basic Care), Balance Training, IADL, Pt./Family Education, Ther. Exercise for ADL Goals Progress/Modifications: This patient will undergo a personalized multidisciplinary approach with physical therapy and occupational therapy. She requires close rehabilitation nursing monitoring of her neurologic status as well as medical supervision. [place] is good.
--- NOTE | 2017-09-08 12:18 | IRU 24Hr Post Admit Eval ---
24 Hr Post Admission Physical - Relevant Changes Relevant Changes: No Reviewed: I have reviewed the patient's information and concur with the finding and results of the pre-admission screen. Certification: I certify the patient for rehabilitation. - Patient Condition (1) Intraparenchymal hemorrhage of brain Status: Acute Code(s): I61.9 - Nontraumatic intracerebral hemorrhage, unspecified Classification: Present on IRF Admission, IRF Tx That Should Address Diagnosis, Diagnosis Requiring Medical Follow Up (2) Hypertension Status: Chronic Qualifiers: Hypertension type: essential hypertension Qualified Code(s): I10 - Essential (primary) hypertension Code(s): I10 - Essential (primary) hypertension Classification: Present on IRF Admission, IRF Tx That Should Address Diagnosis, Diagnosis Requiring Medical Follow Up - Prior Functional Status Lives With: Alone Residence Type: Apartment/Private Home Assitive Devices: None Prior Functional Status: Indep. at home or school, Indep. w/ IADL - Current Functional Status Current Level of Function: Current level of functioning is as follows: She requires minimum assistance for grooming, upper and lower body dressing and toileting. She requires minimum assistance for toilet transfers and maximum assistance for walking with a rolling walker 75 feet. Patient demonstrates impaired proprioception, weak planograph operator strength on the left hand, reduced fine motor movement in the left hand, balance deficit and ADL deficit, coordination deficits, endurance and decreased safety awareness. Patient Requirements: The patient requires oversight by rehabilitation physician to manage their rehabilitation treatment plan and multidisciplinary approach to care that can only be provided in an IRF and requires a multidisciplinary approach to care, provided by professional PTs, OTs, STs, dieticians, RTs, rehabilitation nurses and is not available in lesser levels of care. Limitations Req: Mobility Impairment, ADL Impairment Physical Therapy Minutes: 90 Occupational Therapy Minutes: 90 Therapy: The patient is to receive therapy at least 5 days a week. - Complications/Comorbidities Impact on Functional Outcomes: Patient's left-sided weakness will impact her functional outcome. Barriers to Discharge: Weakness, Balance, Endurance - Plan to Avoid Complications Plan to Avoid Complications: The patient cannot receive this care in a lesser intensive setting such as [facility] or Outpatient Therapy due to the patient requiring the following : This patient requires close 24 rehabilitation nursing monitoring to assess her neurologic status and to monitor blood pressures and to reduce fall risk. She requires a multidisciplinary approach with PT and OT and medical supervision in view of her recent intraparenchymal bleed and risk for further neurologic decline. .
[2017-09-08] MEDS ORDERED: MELOXICAM 15 MG TABLET PO PRN (13:21)
[2017-09-08] MEDS: GABAPENTIN 300 MG CAPSULE PO SCH ×2 (14:36→20:22)
[2017-09-08 15:01] VITALS: BMI 26.9
[2017-09-08] MEDS ORDERED: FALL RISK - PHARMACY CONSULT XX ONE (16:41)
--- NOTE | 2017-09-08 17:12 | Consult Note ---
Consult Information - Data of Consult Consult date: 09/08/17 Requesting Physician: Stephen Cerda MD Primary Care Provider: Mally Del Rio MD Family Provider: Mally Del Rio MD - Consult Narrative Reason for consult: medical management History of present illness: Patient is a 77-year-old female who is s/p acute intraparenchymal bleed L frontal region with slight midline shift resulting in L sided weakness. She initially started feeling weak the morning of 09/05. She was seen in the clinic and started on Bactrim for UTI. The next day, she woke up with a flaccid left arm and fell several times. She was seen at [facility] in ER and CT showed a bleed. She was then transferred to [facility]. She had MRI and CTA brain/neck in [place] (see results below.) She did not require any intervention. She was admitted to [facility] IRU today for further rehabilitation. Her main medical problems are HTN and DJD of back. Past Medical History Patient Stated Medical History Constipation Yes Hx Incontinence Yes Clinic Medical History High cholesterol (Chronic Medical) Medical History Updates: Hypertension. 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 Macular degeneration, dry. Recent intraparenchymal cerebral hemorrhage. Osteoporosis. Peripheral neuropathy Surgical History: Compression Fracture: vertebroplasty. Fusion L3, 4 and 5 ( history of four fusions). Bilateral total knee replacement. Cholecystectomy. Ventral hernia repair after gallbladder surgery. Bilateral cataract procedure. Incidental appendectomy w/ tubal ligation. T&A age 5 Family History: Family History Father Lung cancer Paternal Grandfather Stroke Mother Dementia Family History Updates: reviewed - Social History Smoking status: Former smoker Substance use type: does not use Household members: none Current occupational status: retired Previous occupational history: nurse Current residence: Apartment/Private Home ([facility] in [place]) Social history: Dr. Mally Skaggs - PCP Review of Systems All systems PM: 10-point ROS was reviewed, no additional remarkable complaints except ("tired," L arm and leg weakness) Medications Home Medications Medication Instructions Recorded Confirmed Type Atorvastatin Calcium 1 tab PO HS #0 tab 12/16/14 09/08/17 History Mapap Extra Strength 500 mg tablet 500 mg PO Q4HPRN PRN 05/18/17 09/08/17 History Ultram (Tramadol) 50 mg tablet 50 mg PO BID tab 05/18/17 09/08/17 History alendronate 70 mg tablet 70 mg PO WEEKLY tab 05/18/17 09/08/17 History Baclofen [Lioresal] 10 mg PO DAILY 09/08/17 09/08/17 History Gabapentin 300 mg PO TID 09/08/17 09/08/17 History Lisinopril [Prinivil] 5 mg PO DAILY 09/08/17 09/08/17 History Meloxicam 15 mg PO DAILY PRN 09/08/17 09/08/17 History Oxybutynin Chloride 5 mg PO DAILY PRN 09/08/17 09/08/17 History Ramelteon [Rozerem] 8 mg PO HS 09/08/17 09/08/17 History Allergies Allergy/AdvReac Type Severity Reaction Status Date / Time acetaminophen [From Percocet] Allergy Verified 06/01/17 10:24 oxycodone [From Percocet] Allergy Verified 06/01/17 10:24 Exam Vital Signs: Temperature 98.3 F 09/08/17 16:00 Pulse Rate 73 09/08/17 16:00 Respiratory Rate 14 09/08/17 16:00 Blood Pressure 147/67 H 09/08/17 16:00 Pulse Oximetry 96 09/08/17 16:00 Height/Weight/BMI: Height 1.73 m Weight 80.4 kg Body Mass Index 26.9 - Constitutional Present: no acute distress, well nourished, well developed - Routine HEENT Exam Head: Present: normocephalic, atraumatic Eye: Present: EOMI, PERRL ENT: Present: mucous membranes moist, oropharynx clear - Routine Neck Exam Present: supple. Absent: lymphadenopathy, thyromegaly - Routine Respiratory Exam Present: CTA bilaterally. Absent: wheezes - Routine Cardiovascular Exam Present: RRR, no murmur - Routine Abdominal Exam Present: soft, normoactive bowel sounds. Absent: tenderness, distended - Routine Extremities Exam Present: no edema, normal capillary refill - Routine Skin Exam Present: dry, warm - Routine Neurological Exam Present: alert, oriented X3, CN II-XII intact, motor deficit (strength on L UE is really pretty good, but there is a delay in her response to pushing against resistance. Nl finger-nose. Finger-finger is slowed), facial asymmetry (L eye ptosis, but pt reports that is chronic. Slight facial droop noted to mouth on L , but pt thinks this is chronic as well), normal speech - Routine Psychiatric Exam Present: normal affect, cooperative Results - Imaging and Cardiology MRI brain/CTA head and neck Additional comments: [facility] 09/07/17 brain MRI demonstrating prominent intraparenchymal hemorrhage within the right frontal lobe associated with small amount of overlying subarachnoid hemorrhage. There was minimal right to left midline shift without underlying mass nor vascular malformation seen. CT angiogram of the head and neck with contrast demonstrated mild stenosis within the cavernous segment of the bilateral internal carotid arteries without high-grade stenosis dissection nor aneurysm. Assessment and Plan (1) Intraparenchymal hemorrhage of brain Current visit: Yes Status: Acute (2) Hypertension Current visit: Yes Status: Chronic Assessment and Plan: Assessment Recent intraparenchymal cerebral hemorrhage w/ L sided weakness Hypertension Degenerative joint disease of back Macular degeneration, dry Osteoporosis Peripheral neuropathy Plan Agree with admission to IRU for further strengthening and improvement in functional abilities. Will follow BP's. Labs as ordered by Dr. Cerda. Hospitalist service will follow pt throughout her stay. Thank you for the consult. Care to return to Dr. Mally Del Rio on dismissal. - Physician Narrative Physician: Jarrett Luciano MD Narrative: Date: 09/08/17 Time: 2054 Have independently examined pt. Chart reviewed. Case discussed with my PA. Above care plan developed with my supervision; agree with above. Admitted to IRU for restorative therapy following intraparenchymal cerebral hemorrhage w/ L sided weakness. Patient sleeping soundly at the time of my interview and exam. Lungs: clear CV: regular MSE: sleeping Plan: Agree with admission to IRU to maximize strength and functional status. Encourage PT/OT to improve abilities. Home medications continued. Monitor BP. Lab scheduled for tomorrow. Medically stable for IRU floor activities. Hospital Course Summary Disclaimer: The visit summary below is not to be considered part of the above Progress Note.
[2017-09-08] MEDS: ATORVASTATIN 40 MG TABLET PO SCH (20:21)
[2017-09-08] MEDS: TRAZODONE 50 MG TABLET PO SCH (20:21)
[2017-09-08] MEDS: TRAMADOL 50 MG TABLET PO SCH (20:22)
[2017-09-08] MEDS ORDERED: RAMELTEON 8 MG PO SCH (21:00)
[2017-09-09] MEDS: DULOXETINE 30 MG CAPSULE PO SCH (08:28)
[2017-09-09] MEDS: BACLOFEN 10 MG TABLET PO SCH (08:28)
[2017-09-09] MEDS: GABAPENTIN 300 MG CAPSULE PO SCH ×3 (08:28→20:22)
[2017-09-09] MEDS: LISINOPRIL 5 MG TABLET PO SCH (08:28)
[2017-09-09] MEDS: TRAMADOL 50 MG TABLET PO SCH ×2 (08:28→20:23)
[2017-09-09] MEDS: ACETAMINOPHEN 500 MG TABLET PO PRN ×2 (14:17→18:16)
[2017-09-09] MEDS: ATORVASTATIN 40 MG TABLET PO SCH (20:23)
[2017-09-09] MEDS: TRAZODONE 50 MG TABLET PO SCH (20:23)
[2017-09-10] MEDS: GABAPENTIN 300 MG CAPSULE PO SCH ×3 (08:50→22:30)
[2017-09-10] MEDS: ALENDRONATE 70 MG TABLET PO SCH (08:50)
[2017-09-10] MEDS: BACLOFEN 10 MG TABLET PO SCH (08:50)
[2017-09-10] MEDS: LISINOPRIL 5 MG TABLET PO SCH (08:50)
[2017-09-10] MEDS: TRAMADOL 50 MG TABLET PO SCH ×2 (08:50→22:30)
[2017-09-10] MEDS: POLYETHYL GLYCOL 3350 17gm PACKET PO SCH (08:51)
[2017-09-10] MEDS: DULOXETINE 30 MG CAPSULE PO SCH (08:51)
[2017-09-10] MEDS: ACETAMINOPHEN 500 MG TABLET PO PRN (18:14)
[2017-09-10] MEDS: ATORVASTATIN 40 MG TABLET PO SCH (22:30)
[2017-09-10] MEDS: TRAZODONE 50 MG TABLET PO SCH (22:31)
[2017-09-11] MEDS: POLYETHYL GLYCOL 3350 17gm PACKET PO SCH (08:24)
[2017-09-11] MEDS: DULOXETINE 30 MG CAPSULE PO SCH (08:25)
[2017-09-11] MEDS: GABAPENTIN 300 MG CAPSULE PO SCH ×3 (08:25→21:05)
[2017-09-11] MEDS: TRAMADOL 50 MG TABLET PO SCH ×2 (08:25→21:05)
[2017-09-11] MEDS: LISINOPRIL 5 MG TABLET PO SCH (08:25)
[2017-09-11] MEDS: BACLOFEN 10 MG TABLET PO SCH (08:26)
--- NOTE | 2017-09-11 11:31 | IRU Progress Note ---
- Subjective/Serverity of Illness Date: 09/11/17 Sylwia was evaluated on inpatient rehabilitation. She developed some insomnia over the weekend. She apparently was on Rozerem in [place] but that is not on the hospital formulary. We started trazodone. She states that that is tolerated well and she denies any "hangover" the next morning. She slept fairly well with it. She reports that her appetite is reduced. She started to cry during the interview. She states that she misses her who a couple of years ago. She states that her "weepiness" predated the current stroke. She is on Cymbalta 30 mg daily. We will plan increase this to 60 mg daily. Support was offered and provided today. Brief therapy update: For occupational therapy, grooming has improved from minimum assistance to contact guard assistance. Bathing also improved from minimum assistance to contact guard assistance. Upper body dressing improved from maximum to minimum assistance and lower body dressing improved from maximal assistance to moderate assistance. For physical therapy, sit to stand transfers are modified independent. Standing to sit transfers are the same. She is able to walk with a front-wheeled walker 218 feet. We discussed her home situation. Home health would be available for [place]. She will need to be quite independent however to return to her home apartment. She is tearful and is concerned about this. Brief update on medical issues as follows: 1. Recent acute intraparenchymal bleed left frontal region with slight midline shift resulting in left-sided weakness: She is discouraged regarding her neurologic status. Fine motor movement markedly diminished left hand. However can touch thumb to each finger but takes a while. Youth Manager strength reduced. Denies any headaches. Neurologically stable. 2. Hypertension: Blood pressures are reviewed and are stable. 3. Recent UTI: She did take an antibiotic for this. She is asymptomatic. We will reassess a urinalysis. 4. Depression: She is on Cymbalta 30 mg chronically. She clearly is suffering from situational depression and as such increasing dose of Cymbalta may or may not be of benefit. Emotional support was provided. We will have her increase Cymbalta to 60 mg daily. 5. DJD lumbar spine: She is on chronic pain medication for this (tramadol). Exam Vital Signs: Temperature 98.0 F 09/11/17 08:00 Pulse Rate 96 09/11/17 08:00 Respiratory Rate 18 09/11/17 08:00 Blood Pressure 136/66 09/11/17 08:00 Pulse Oximetry 97 09/11/17 08:00 Height/Weight/BMI: Height 1.73 m Weight 80.4 kg Body Mass Index 26.9 - Constitutional Present: mild distress (very tearful this morning.), well nourished, well developed, cooperative - Routine HEENT Exam Head: Present: normocephalic Eye: Present: EOMI ENT: Present: mucous membranes moist, dentition normal - Routine Neck Exam Present: supple - Routine Respiratory Exam Present: CTA bilaterally. Absent: wheezes, crackles - Routine Cardiovascular Exam Present: RRR, S1, S2. Absent: murmur, S3, S4 - Routine Extremities Exam Present: no edema. Absent: cyanosis, clubbing - Routine Skin Exam Present: dry, warm - Routine Neurological Exam Present: alert, oriented X3, CN II-XII intact - Routine Psychiatric Exam Present: normal affect, normal thought process, cooperative, good insight, good judgment, depressed Results IRU - Labs Labs: Have reviewed other providers notes as well as laboratory findings. IRU A/P (1) Intraparenchymal hemorrhage of brain Current visit: Yes Status: Acute Denies headaches. Denies new neurologic changes. Vision appears to be adequate. Neurologically she is stable. Has left-sided weakness. This particular true with fine motor movement of the left upper extremity. (2) Hypertension Qualifiers: Hypertension type: essential hypertension Qualified Code(s): I10 - Essential (primary) hypertension Current visit: Yes Status: Chronic Blood pressures are reviewed and look good. (3) DJD (degenerative joint disease), lumbosacral Current visit: Yes Status: Acute (4) UTI (urinary tract infection) Qualifiers: Urinary tract infection type: acute cystitis Hematuria presence: without hematuria Qualified Code(s): N30.00 - Acute cystitis without hematuria Current visit: Yes Status: Acute Patient had a positive UA prior to her admission to [facility]. She took only one of the Bactrim tablets due to nausea. Even though she is asymptomatic we will repeat urinalysis today to make sure she is clear. (5) Depression Qualifiers: Depression Type: reactive depression Qualified Code(s): F32.9 - Major depressive disorder, single episode, unspecified Current visit: Yes Status: Chronic Patient expresses frequent crying episodes predating the current stroke. She misses her . Emotional support was provided. We will also increase Cymbalta to 60 mg daily. DVT Prophylaxis: SCD's Resuscitation Status: Full Code - Course Hospital Course: Stephen Cerda MD: 09/11/17 11:35 Very cooperative with therapy and improving. Depressed. We will recheck a urinalysis. Increase Cymbalta to 60 mg daily. - Interventions to Obtain Goals PT Treatment Plan: Balance/Proprioception, Functional Activities, Gait Training , Patient/Family Education, Therapeutic Exercise OT Treatment Plan: ADL (Basic Care), Balance Training, IADL, Pt./Family Education, Ther. Exercise for ADL Goals Progress/Modifications: Time spent with patient and on floor reviewing data and documentin min Medical decision-making: Sylwia has significant crying spells which are probably a combination of reactive depression from the loss of her as well as the current stroke. We will increase Cymbalta to 60 mg daily from 30 mg. I have reviewed the therapy notes and she is improving in this regard. In addition we'll check a urinalysis because she had a positive UA prior to admission to [facility] and took only one of the Bactrim tablets. She is afebrile and asymptomatic but we will make sure she is clear with regard to her urinalysis. Please note that the patient's individual plan of care was developed and documented today, requiring review of therapy notes, medical conditions and anticipated functional recovery. This required additional medical decision making with regard to interaction of the patient's medical issues with the anticipated functional recovery. Please see separate document.
--- NOTE | 2017-09-11 11:40 | IRU Plan of Care ---
U Overall Plan of Care - Date Date: 09/11/17 - Patient Impairments (1) Intraparenchymal hemorrhage of brain Code(s): I61.9 - Nontraumatic intracerebral hemorrhage, unspecified Status: Acute Classification: Present on IRF Admission, IRF Tx That Should Address Diagnosis, Diagnosis Requiring Medical Follow Up (2) Hypertension Qualifiers: Hypertension type: essential hypertension Qualified Code(s): I10 - Essential (primary) hypertension Code(s): I10 - Essential (primary) hypertension Status: Chronic Classification: Present on IRF Admission, IRF Tx That Should Address Diagnosis, Diagnosis Requiring Medical Follow Up (3) DJD (degenerative joint disease), lumbosacral Code(s): M51.37 - Other intervertebral disc degeneration, lumbosacral region Status: Chronic Classification: Present on IRF Admission, IRF Tx That Should Address Diagnosis (4) UTI (urinary tract infection) Qualifiers: Urinary tract infection type: acute cystitis Hematuria presence: without hematuria Qualified Code(s): N30.00 - Acute cystitis without hematuria Code(s): N39.0 - Urinary tract infection, site not specified Status: Acute Classification: Present on IRF Admission, Diagnosis Requiring Medical Follow Up (5) Depression Qualifiers: Depression Type: reactive depression Qualified Code(s): F32.9 - Major depressive disorder, single episode, unspecified Code(s): F32.9 - Major depressive disorder, single episode, unspecified Status : Chronic Classification: Present on IRF Admission, IRF Tx That Should Address Diagnosis, Diagnosis Requiring Medical Follow Up - Relevant Changes Relevant Changes: No Reviewed: I have reviewed the patient's information and concur with the finding and results of the pre-admission screen. Certification: I certify the patient for rehabilitation. - Medical Prognosis Medical Prognosis: Good Vital Signs: Last Vital Signs Temp 98.0 F 09/11/17 08:00 Pulse 96 09/11/17 08:00 Resp 18 09/11/17 08:00 BP 136/66 09/11/17 08:00 Pulse Ox 97 09/11/17 08:00 - Anticipated Interventions Anticipated Interventions: The patient requires inpatient IRF care for PT, OT, and/or ST for residuals remaining from intraparenchymal brain hemorrhage resulting in muscular weakness and strength deficits. An individualized overall plan of care has been developed after careful review of the patient's preadmission screening, post admission physician evaluation and assessments of all therapy disciplines and/ or other pertinent clinicians involved in treating the patient. This indicates medical necessity and rehabilitation necessity have been established through a thorough review of all available medical information. Strength Deficits: Left Upper Extremity, Left Lower Extremity - Current Functional Status Failed Alternative Therapy: Arrived from Acute Care Patient Requires: The patient requires oversight by rehabilitation physician to manage their rehabilitation treatment plan and multidisciplinary approach to care that can only be provided in an IRF and requires a multidisciplinary approach to care, provided by professional PTs, OTs, STs, rehabilitation nurses, and may require STs, dieticians, and RTS. This is not available in lesser levels of care. Physical Therapy Minutes: 90 Occupational Therapy Minutes: 90 Therapy: The patient is to receive therapy at least 5 days a week. - Anticipated LOS/Outcomes Anticipated Functional Outcome: Expected functional improvements include: -- Modified independant to independant ambulation with or without assistive device -- Modified independant to independant ADL's with or without assistive device -- Return to pre-morbid level of mobility -- Maximize level of mobility and ADL's to decrease burden on any caregiver involved with this patient's care It is anticipated that Sylwia will be able to return to her apartment with modified independent level of functioning. She may require home health PT and OT to readjust to her home environment. Anticipated Length of Stay (days): 10 Anticipated DC Destination: Home, Self Care, Home Health Service Home Safety Plan: The patient will be provided with the development of a Home Safety Plan for return to a home or home-like environment and and to ensure safety post discharge. - Plan to Avoid Complications Barriers to Attaining Goals: Weakness, Balance, Endurance Plan to Avoid Complications: The patient cannot receive this care in a lesser intensive setting such as Prison or Outpatient Therapy due to the patient requiring the following : Patient requires close 24 hour rehabilitation nursing monitoring of her neurologic status to ensure no evidence of rebleed or neurologic decline. She requires close monitoring of her blood pressure to avoid excessive pressures and hypotension as well. She requires a multidisciplinary coordinated an intensive course of therapy to include PT and OT with medical supervision because of these multiple medical problems and her functional deficits.
[2017-09-11] MEDS: ACETAMINOPHEN 500 MG TABLET PO PRN (14:04)
[2017-09-11] MEDS: ATORVASTATIN 40 MG TABLET PO SCH (21:05)
[2017-09-11] MEDS: TRAZODONE 50 MG TABLET PO SCH (21:05)
[2017-09-12] MEDS: ACETAMINOPHEN 500 MG TABLET PO PRN ×3 (06:19→15:17)
[2017-09-12] MEDS: DULOXETINE 60 MG CAPSULE PO SCH (08:45)
[2017-09-12] MEDS: TRAMADOL 50 MG TABLET PO SCH ×2 (08:45→20:56)
[2017-09-12] MEDS: BACLOFEN 10 MG TABLET PO SCH (08:45)
[2017-09-12] MEDS: LISINOPRIL 5 MG TABLET PO SCH (08:45)
[2017-09-12] MEDS: POLYETHYL GLYCOL 3350 17gm PACKET PO SCH (08:45)
[2017-09-12] MEDS: GABAPENTIN 300 MG CAPSULE PO SCH ×3 (10:00→20:56)
--- NOTE | 2017-09-12 10:53 | IRU Progress Note ---
- Subjective/Serverity of Illness Date: 09/12/17 Sylwia was interviewed and examined in her room. She says that she believes she is making progress. She has questions about her ultimate limitations and whether she can drive. I told her at this point we would not recommend driving. She will need to be released by her personal physician in this regard. She denies any chest pain or shortness of breath. She reports her appetite is better. She has had no nausea no vomiting. With regard to her tearful episodes, we did discuss with her today that we increase the Cymbalta from 30-60 mg daily. She was okay with that. Brief therapy update: For occupational therapy, grooming has improved from minimal assistance, to contact-guard assistance and now standby assistance with cues required. Bathing improved from contact-guard assistance to standby assistance. Upper body dressing remains with minimum assistance. Lower body dressing improved from moderate assistance to standby assistance. Shower transfers improved from minimum assistance to standby assistance. For physical therapy, bed/chair/wheelchair transfers were modified independent but have now been performed with standby assistance. Car transfers are with modified independence. She is able to ambulate 449 feet with a 4 wheeled walker with standby assistance. She believes that her left leg strength is improved. Brief update on medical issues as follows: 1. Recent acute intraparenchymal bleed left frontal region with slight midline shift resulting in left-sided weakness: Strength appears to be improved in the left upper and lower extremities. Fine motor movement continues to be reduced in the left hand. 2. Hypertension: Stable. 3. Recent UTI: We will repeated the urinalysis because of recent diagnosis of UTI. This is clear. 4. Depression: We discussed this today and she is now on 60 mg of Cymbalta daily. 5. DJD lumbar spine: Unchanged. Remains on tramadol twice daily. Exam Vital Signs: Temperature 98.0 F 09/11/17 21:16 Pulse Rate 79 09/11/17 21:16 Respiratory Rate 20 09/11/17 21:16 Blood Pressure 140/64 H 09/11/17 21:16 Pulse Oximetry 96 09/11/17 21:16 Height/Weight/BMI: Height 1.73 m Weight 80.4 kg Body Mass Index 26.9 - Constitutional Present: well nourished, well developed, average body habitus, cooperative - Routine HEENT Exam Head: Present: normocephalic Eye: Present: EOMI ENT: Present: mucous membranes moist, oropharynx clear - Routine Neck Exam Present: supple - Routine Respiratory Exam Present: CTA bilaterally. Absent: wheezes - Routine Cardiovascular Exam Present: RRR, S1, S2. Absent: murmur, S3, S4 - Routine Abdominal Exam Present: soft, normoactive bowel sounds, non distended. Absent: tenderness - Routine Extremities Exam Present: no edema. Absent: cyanosis, clubbing - Routine Skin Exam Present: dry, warm - Routine Neurological Exam Present: alert, oriented X3, CN II-XII intact, motor deficit (strength is 4 out of 5 and left lower extremity. Able to raise left lower extremity against resistance. Left upper extremity also 4 out of 5 although reduced fine motor movement. Car Parker strength appears to be good in the left hand.) Left face droop noted. Speech is fluent and she is well oriented. - Routine Psychiatric Exam Present: normal affect, cooperative, good insight, good judgment, depressed Results IRU - Labs Labs: Reviewed UA and chart info IRU A/P (1) Intraparenchymal hemorrhage of brain Current visit: Yes Status: Acute She is neurologically stable. Denies headaches. Neurological exam is somewhat improved with regard to strength on the left side. (2) Hypertension Qualifiers: Hypertension type: essential hypertension Qualified Code(s): I10 - Essential (primary) hypertension Current visit: Yes Status: Chronic Blood pressures remained stable and adequately controlled. (3) DJD (degenerative joint disease), lumbosacral Current visit: Yes Status: Chronic (4) UTI (urinary tract infection) Qualifiers: Urinary tract infection type: acute cystitis Hematuria presence: without hematuria Qualified Code(s): N30.00 - Acute cystitis without hematuria Current visit: Yes Status: Resolved Urinalysis is clear. (5) Depression Qualifiers: Depression Type: reactive depression Qualified Code(s): F32.9 - Major depressive disorder, single episode, unspecified Current visit: Yes Status: Chronic Cymbalta increased to 60 mg daily. DVT Prophylaxis: SCD's Resuscitation Status: Full Code - Course Hospital Course: Stephen Cerda MD: 09/11/17 11:35 Very cooperative with therapy and improving. Depressed. We will recheck a urinalysis. Increase Cymbalta to 60 mg daily. 09/12/17 10:56 UA is clear. Cymbalta is increased. Neurologically somewhat improved. Progressing with therapy. - Interventions to Obtain Goals PT Treatment Plan: Balance/Proprioception, Functional Activities, Gait Training , Patient/Family Education, Therapeutic Exercise OT Treatment Plan: ADL (Basic Care), Balance Training, IADL, Pt./Family Education, Ther. Exercise for ADL Goals Progress/Modifications: Today I discussed with her the issue for depression. She dates this to the loss of her a couple of years ago although certainly could be related to the current intraparenchymal hemorrhage with the possibility of pseudobulbar changes. At the present time we increased her Cymbalta to 60 mg daily and see how she tolerates that. She reports that her appetite is improved. Today's neurologic exam is a bit improved with regard to strength on the left side. She is also improving functionally overall.
--- NOTE | 2017-09-12 16:46 | Progress Note ---
- Date 09/12/17 Subjective: Sylwia is seen while sitting in her chair, watching TV. She states she is doing "fair" though denies any specific complaints or concerns. Her appetite is stable and bowels are moving. Cymbalta was recently increased to 60mg daily due to depression. Objective Vital signs: Temperature 97.8 F 09/12/17 15:39 Pulse Rate 78 09/12/17 15:39 Respiratory Rate 18 09/12/17 15:39 Blood Pressure 126/60 09/12/17 15:39 Pulse Oximetry 94 09/12/17 15:39 Height/Weight/BMI: Height 5 ft 8 in Weight 177 lb 4.026 oz Body Mass Index 26.9 Comments: sitting in chair, watching TV - Constitutional Present: no acute distress, well nourished, well developed, cooperative - Routine HEENT Exam Head: Present: normocephalic, atraumatic Eye: Present: PERRL. Absent: conjunctival icterus ENT: Present: mucous membranes moist - Routine Respiratory Exam Present: CTA bilaterally. Absent: rales, respiratory distress, rhonchi, stridor , wheezes - Routine Cardiovascular Exam Present: RRR, S1, S2 - Routine Abdominal Exam Present: soft, normoactive bowel sounds, non distended, non tender - Routine Extremities Exam Present: edema (trace), full ROM, pulses intact - Routine Back/Spine/Pelvis Exam Back/Spine: Present: full ROM. Absent: vertebral tenderness - Routine Musculoskeletal Exam Musculoskeletal: Present: moving extremities well - Routine Skin Exam Present: dry, warm. Absent: jaundice - Routine Neurological Exam Present: alert, moving all extremities, hearing grossly intact, normal speech - Routine Lymphatic Exam Lymphatic: Absent: lymphedema - Routine Psychiatric Exam Present: cooperative Results - Labs CBC & Chem 7: 09/09/17 06:06 09/09/17 06:06 Assessment and Plan (1) Intraparenchymal hemorrhage of brain Current visit: Yes Status: Acute (2) Hypertension Current visit: Yes Status: Chronic Assessment and Plan: Assessment Recent intraparenchymal cerebral hemorrhage w/ L sided weakness Hypertension Degenerative joint disease of back Macular degeneration, dry Osteoporosis Peripheral neuropathy Plan - 09/12/17 Continue to encourage therapies and care per Dr. Cerda. Cymbalta increased to 60mg daily due to depression. Continue to monitor mood closely. Admission labs stable. Will monitor periodically throughout admission. Continue current care. Resuscitation Status: Full Code - Time spent with patient Time with patient PN: 25 minutes - Physician Narrative Physician: Jarrett Luciano MD Narrative: Date: 09/12/17 Time: 164 Hospital Course Summary Disclaimer: The visit summary below is not to be considered part of the above Progress Note. Hospital Course: Plan - 09/12/17 Continue to encourage therapies and care per Dr. Cerda. Cymbalta increased to 60mg daily due to depression. Continue to monitor mood closely. Admission labs stable. Will monitor periodically throughout admission. Continue current care.
[2017-09-12] MEDS: ATORVASTATIN 40 MG TABLET PO SCH (20:56)
[2017-09-12] MEDS: TRAZODONE 50 MG TABLET PO SCH (20:56)
[2017-09-13] MEDS: BACLOFEN 10 MG TABLET PO SCH (08:51)
[2017-09-13] MEDS: GABAPENTIN 300 MG CAPSULE PO SCH ×3 (08:51→21:02)
[2017-09-13] MEDS: LISINOPRIL 5 MG TABLET PO SCH (08:51)
[2017-09-13] MEDS: POLYETHYL GLYCOL 3350 17gm PACKET PO SCH (08:51)
[2017-09-13] MEDS: DULOXETINE 60 MG CAPSULE PO SCH (08:52)
[2017-09-13] MEDS: TRAMADOL 50 MG TABLET PO SCH ×2 (08:52→21:02)
[2017-09-13] MEDS: ACETAMINOPHEN 500 MG TABLET PO PRN ×2 (12:53→18:57)
[2017-09-13] MEDS: ATORVASTATIN 40 MG TABLET PO SCH (21:02)
[2017-09-13] MEDS: TRAZODONE 50 MG TABLET PO SCH (21:03)
[2017-09-14] MEDS: LISINOPRIL 5 MG TABLET PO SCH (09:45)
[2017-09-14] MEDS: TRAMADOL 50 MG TABLET PO SCH ×2 (09:45→21:00)
[2017-09-14] MEDS: GABAPENTIN 300 MG CAPSULE PO SCH ×3 (09:45→20:59)
[2017-09-14] MEDS: BACLOFEN 10 MG TABLET PO SCH (09:45)
[2017-09-14] MEDS: DULOXETINE 60 MG CAPSULE PO SCH (09:46)
[2017-09-14] MEDS: POLYETHYL GLYCOL 3350 17gm PACKET PO SCH (09:46)
--- NOTE | 2017-09-14 11:18 | IRU Progress Note ---
- Subjective/Serverity of Illness Date: 09/14/17 Sylwia was interviewed and examined on inpatient rehabilitation. She is tolerating therapy well. She denies any chest pain, shortness of breath etc. She reports that her appetite is improved significantly. Had another recent crying spell when she saw her daughter, I believe yesterday. Remains on a higher dose of Cymbalta at 60 mg daily. She would like to return to her home sooner than later. She says that she does not have to go down into the basement necessarily. Brief therapy update: For occupational therapy she is continuing to require verbal and tactile cues for transfers and ADLs. As the activity continues, need for cueing is less. Lower body dressing has improved from moderate assistance to standby assistance. For physical therapy she is able to ambulate 226 feet at standby assist with a front-wheeled walker. Brief update on medical issues as follows: 1. Recent acute intraparenchymal bleed left frontal region with slight midline shift resulting in left-sided weakness: Continues to deny any headache. Visual field analysis by confrontation appear to be normal today. However she has been reported to have left-sided neglect. Neurologic exam seems to be better with regard to strength in the left upper and lower extremity. 2. Hypertension: Blood pressures are reviewed and are stable. 3. Recent UTI: Problem resolved. 4. Depression: Ongoing issue since the loss of her and now with the current bleed. Remains on Cymbalta 60 mg daily and tolerating well. 5. DJD lumbar spine: Unchanged. Remains on tramadol twice daily. Exam Vital Signs: Temperature 97.8 F 09/14/17 08:00 Pulse Rate 80 09/14/17 08:00 Respiratory Rate 14 09/14/17 08:00 Blood Pressure 133/64 09/14/17 08:00 Pulse Oximetry 99 09/14/17 08:00 Height/Weight/BMI: Height 1.73 m Weight 80.4 kg Body Mass Index 26.9 - Constitutional Present: no acute distress, well nourished, well developed, average body habitus , cooperative - Routine HEENT Exam Head: Present: normocephalic, atraumatic Eye: Present: EOMI ENT: Present: mucous membranes moist, oropharynx clear, dentition normal - Routine Neck Exam Present: supple - Routine Respiratory Exam Present: CTA bilaterally. Absent: wheezes - Routine Cardiovascular Exam Present: RRR, S1, S2. Absent: murmur - Routine Extremities Exam Present: no edema, pulses intact - Routine Skin Exam Present: dry, warm - Routine Neurological Exam Present: alert, oriented X3, CN II-XII intact, motor deficit Visual field exam by confrontation is normal. Strength is improving left upper extremity. Fine motor movement is improved. [employer] strength is good in the left hand. - Routine Psychiatric Exam Present: cooperative, good insight, good judgment, depressed, anxious IRU A/P (1) Intraparenchymal hemorrhage of brain Current visit: Yes Status: Acute Sylwia remains neurologically stable to improved from her recent brain hemorrhage. No evidence of visual changes and no headaches noted. (2) Hypertension Qualifiers: Hypertension type: essential hypertension Qualified Code(s): I10 - Essential (primary) hypertension Current visit: Yes Status: Chronic Blood pressures are reviewed and are stable. (3) DJD (degenerative joint disease), lumbosacral Current visit: Yes Status: Chronic (4) UTI (urinary tract infection) Qualifiers: Urinary tract infection type: acute cystitis Hematuria presence: without hematuria Qualified Code(s): N30.00 - Acute cystitis without hematuria Current visit: Yes Status: Resolved (5) Depression Qualifiers: Depression Type: reactive depression Qualified Code(s): F32.9 - Major depressive disorder, single episode, unspecified Current visit: Yes Status: Chronic DVT Prophylaxis: SCD's Resuscitation Status: Full Code - Course Hospital Course: Stephen Cerda MD: 09/11/17 11:35 Very cooperative with therapy and improving. Depressed. We will recheck a urinalysis. Increase Cymbalta to 60 mg daily. 09/12/17 10:56 UA is clear. Cymbalta is increased. Neurologically somewhat improved. Progressing with therapy. 09/14/17 11:20 Progressing with therapy. Team meeting today to decide if she is safe to return home at this time. Blood pressures are controlled. Neurologically she continues to improve. Continues to struggle with crying spells/depression - Interventions to Obtain Goals PT Treatment Plan: Balance/Proprioception, Functional Activities, Gait Training , Patient/Family Education, Therapeutic Exercise OT Treatment Plan: ADL (Basic Care), Balance Training, IADL, Pt./Family Education, Ther. Exercise for ADL Goals Progress/Modifications: At this time it is not clear if Sylwia is safe to return home independently. Continues to have some ADL deficits. Team meeting today to review these from a multidisciplinary standpoint. Medically she is stable and today's neurologic exam shows improvement in strength in the left upper and lower extremity. Fine motor movement is improved. Visual moyer appear to be okay by gross confrontation exam. Her appetite is improved. Medically she seems stable.
--- NOTE | 2017-09-14 13:35 | IRU Team Meeting ---
IRU Team Meeting - Nursing Bladder Assistive Devices Utilized:: Absorbent Pad Bladder Management Level of Assist: Modified Independent Bladder Frequency of Accidents: No accidents Bowel Assistive Devices Utilized:: Medication Bowel Management Level of Assist: Modified Independent Bowel Frequency of Accidents: No accidents Vital Signs: Vital Signs - 24 hr 09/13/17 16:00 09/13/17 20:25 09/14/17 08:00 Temperature 98.0 F 97.9 F 97.8 F Pulse Rate 80 83 80 Respiratory Rate 16 20 14 Blood Pressure 146/67 H 130/63 133/64 Pulse Oximetry 96 96 99 Current Medications: Acetaminophen (Tylenol) 500 mg PO Q4H PRN PRN Reason: pain mild 1-3 Last Admin: 09/13/17 18:57 Dose: 500 mg Alendronate Sodium (Fosamax) 70 mg PO Larry@0600 [facility] Last Admin: 09/10/17 08:50 Dose: 70 mg Atorvastatin Calcium (Lipitor) 80 mg PO [facility] Last Admin: 09/13/17 21:02 Dose: 80 mg Baclofen (Lioresal) 10 mg PO DAILY [facility] Last Admin: 09/14/17 09:45 Dose: 10 mg Duloxetine HCl (Cymbalta) 60 mg PO DAILY [facility] Last Admin: 09/14/17 09:46 Dose: 60 mg Gabapentin (Neurontin) 300 mg PO TID [facility] Last Admin: 09/14/17 09:45 Dose: 300 mg Lisinopril (Prinivil) 5 mg PO DAILY [facility] Last Admin: 09/14/17 09:45 Dose: 5 mg Magnesium Hydroxide (Mom) 30 ml PO DAILY PRN PRN Reason: Constipation Last Admin: 09/09/17 18:09 Dose: 30 ml Meloxicam (Mobic) 15 mg PO DAILY PRN PRN Reason: For mild pain = 1-3 Oxybutynin Chloride (Ditropan) 5 mg PO DAILY PRN PRN Reason: Urinary incontinence Polyethylene Glycol (Miralax) 17 gm PO DAILY [facility] Last Admin: 09/14/17 09:46 Dose: 17 gm Tramadol HCl (Ultram) 50 mg PO BID [facility] Last Admin: 09/14/17 09:45 Dose: 50 mg Trazodone HCl (Desyrel) 25 mg PO [facility] Last Admin: 09/13/17 21:03 Dose: 25 mg Current Medical Issues: intraparenchymal bleed, hypertension Comments: I certify that I personally led the interdisciplinary team meeting and agree with comments, barriers and goals indicated. Team meeting was held in the patient's room with the patient and the following family members present: patient's daughter in law Ivory. Also attempted to call daughter Karrie but left voice mail message. Sylwia has been neurologically stable. She is improving with regard to transfers and ambulation. She has occasional headaches. She is on Tylenol as needed as well as tramadol twice daily for her chronic back pain. Her blood pressures have been well controlled. - Physical Therapy Bed, Chair, Wheelchair Transfer Assist: Stand By Assist/Supervision Ambulation Ability: Stand By Assist/Supervision Ambulation Distance: 200 Stair Climbing Ability: Stand By Assist/Supervision Number of Steps Climbed: 4 Car Transfer Ability: Stand By Assist/Supervision Comments: Continues to experience left sided neglect. She is making progress with regard to ambulation with a 4 wheeled walker. Her degree of left sided neglect is improving. She does demonstrate increased safety with therapy and is making good progress. - Occupational Therapy Eating Ability: Independent Grooming Ability: Independent Bathing Ability: Stand By Assist/Supervision Upper Body Dressing Ability: Stand By Assist/Supervision Lower Body Dressing Ability: Stand By Assist/Supervision Tub Transfer Assist: Patient Refuses Toileting Assist: Stand By Assist/Supervision Toilet Transfer Assist: Stand By Assist/Supervision Comments: She continues to require verbal cues due to left sided neglect. She will benefit from increased time to perform ADL tasks with increased independence. - Goals Physical Therapy Goals: 09/14/17 Goals: 1.) Modified independence with ambulation and transfers Occupational Therapy Goals: OT goals 09/14/17: 1.) Maintain upright posture during ADL tasks. 2.) Improve L sided awareness during ADL tasks. - Barriers to Discharge Barriers to Attaining Goals: Balance (patient is being provided balance and proprioceptive training.), Other (patient displaying left-sided neglect: Forced use activities are provided.) - Care Plan Anticipated Length of Stay (days): 6 Anticipated DC Destination: Home, Self Care, Home Health Service I have led this team conference and agree with the plan.
[2017-09-14] MEDS: ACETAMINOPHEN 500 MG TABLET PO PRN (15:00)
[2017-09-14] MEDS: TRAZODONE 50 MG TABLET PO SCH (20:59)
[2017-09-14] MEDS: ATORVASTATIN 40 MG TABLET PO SCH (21:00)
[2017-09-15] MEDS: ACETAMINOPHEN 500 MG TABLET PO PRN ×3 (01:05→15:10)
[2017-09-15] MEDS: LISINOPRIL 5 MG TABLET PO SCH (08:36)
[2017-09-15] MEDS: BACLOFEN 10 MG TABLET PO SCH (08:36)
[2017-09-15] MEDS: GABAPENTIN 300 MG CAPSULE PO SCH ×3 (08:37→20:50)
[2017-09-15] MEDS: DULOXETINE 60 MG CAPSULE PO SCH (08:38)
[2017-09-15] MEDS: POLYETHYL GLYCOL 3350 17gm PACKET PO SCH (08:41)
[2017-09-15] MEDS: TRAMADOL 50 MG TABLET PO SCH ×2 (08:41→20:52)
--- NOTE | 2017-09-15 11:02 | IRU Progress Note ---
- Subjective/Serverity of Illness Date: 09/15/17 Sylwia was interviewed and examined in her room on inpatient rehabilitation. She states that her appetite continues to improve. Therapy is focused on improving functional mobility and ADLs and in particular addressing left sided neglect. Patient is improving significantly in this area. She denies any headaches. She denies any visual changes or diplopia. She reports that her bowels are moving adequately. There is no shortness of breath and no chest pain. Blood pressures are controlled. Exam Vital Signs: Temperature 97.1 F 09/15/17 08:00 Pulse Rate 72 09/15/17 08:00 Respiratory Rate 16 09/14/17 20:22 Blood Pressure 121/60 09/15/17 08:00 Pulse Oximetry 97 09/15/17 08:00 Height/Weight/BMI: Height 1.73 m Weight 79.5 kg Body Mass Index 26.9 - Constitutional Present: no acute distress, well nourished, well developed, cooperative - Routine HEENT Exam Eye: Present: EOMI ENT: Present: mucous membranes moist - Routine Respiratory Exam Present: CTA bilaterally. Absent: wheezes - Routine Cardiovascular Exam Present: RRR, S1, S2. Absent: murmur - Routine Abdominal Exam Present: soft, normoactive bowel sounds, non distended. Absent: tenderness - Routine Extremities Exam Present: no edema - Routine Skin Exam Present: dry, warm - Routine Neurological Exam Present: alert, oriented X3, CN II-XII intact - Routine Psychiatric Exam Present: normal affect, depressed IRU A/P (1) Intraparenchymal hemorrhage of brain Current visit: Yes Status: Acute Sylwia appears to be neurologically stable at the present time. Her blood pressures are well controlled. Denies any headaches and denies new visual changes. She does have left-sided neglect which is being addressed by therapy. (2) Hypertension Qualifiers: Hypertension type: essential hypertension Qualified Code(s): I10 - Essential (primary) hypertension Current visit: Yes Status: Chronic (3) DJD (degenerative joint disease), lumbosacral Current visit: Yes Status: Chronic (4) UTI (urinary tract infection) Qualifiers: Urinary tract infection type: acute cystitis Hematuria presence: without hematuria Qualified Code(s): N30.00 - Acute cystitis without hematuria Current visit: Yes Status: Resolved (5) Depression Qualifiers: Depression Type: reactive depression Qualified Code(s): F32.9 - Major depressive disorder, single episode, unspecified Current visit: Yes Status: Chronic DVT Prophylaxis: SCD's Resuscitation Status: Full Code - Course Hospital Course: Stephen Cerda MD: 09/11/17 11:35 Very cooperative with therapy and improving. Depressed. We will recheck a urinalysis. Increase Cymbalta to 60 mg daily. 09/12/17 10:56 UA is clear. Cymbalta is increased. Neurologically somewhat improved. Progressing with therapy. 09/14/17 11:20 Progressing with therapy. Team meeting today to decide if she is safe to return home at this time. Blood pressures are controlled. Neurologically she continues to improve. Continues to struggle with crying spells/depression 09/15/17 11:02 Continues to progress with therapy. Desires to go home independently although with home health assistance. Neurologically she is stable to improved. Blood pressures are controlled. Therapy addressing left sided neglect. - Interventions to Obtain Goals PT Treatment Plan: Balance/Proprioception, Functional Activities, Gait Training , Patient/Family Education, Therapeutic Exercise OT Treatment Plan: ADL (Basic Care), Balance Training, IADL, Pt./Family Education, Ther. Exercise for ADL
[2017-09-15] MEDS: ATORVASTATIN 40 MG TABLET PO SCH (20:50)
[2017-09-15] MEDS: TRAZODONE 50 MG TABLET PO SCH (20:53)
[2017-09-16] MEDS: ACETAMINOPHEN 500 MG TABLET PO PRN ×4 (01:02→23:59)
[2017-09-16] MEDS: LISINOPRIL 5 MG TABLET PO SCH (08:32)
[2017-09-16] MEDS: GABAPENTIN 300 MG CAPSULE PO SCH ×3 (08:32→20:51)
[2017-09-16] MEDS: BACLOFEN 10 MG TABLET PO SCH (08:33)
[2017-09-16] MEDS: DULOXETINE 60 MG CAPSULE PO SCH (08:33)
[2017-09-16] MEDS: POLYETHYL GLYCOL 3350 17gm PACKET PO SCH (08:33)
[2017-09-16] MEDS: TRAMADOL 50 MG TABLET PO SCH ×2 (08:34→20:53)
[2017-09-16] MEDS: ATORVASTATIN 40 MG TABLET PO SCH (20:52)
[2017-09-16] MEDS: TRAZODONE 50 MG TABLET PO SCH (20:52)
[2017-09-17] MEDS: ACETAMINOPHEN 500 MG TABLET PO PRN ×2 (05:15→12:34)
[2017-09-17] MEDS: ALENDRONATE 70 MG TABLET PO SCH (05:15)
[2017-09-17] MEDS: BACLOFEN 10 MG TABLET PO SCH (08:39)
[2017-09-17] MEDS: LISINOPRIL 5 MG TABLET PO SCH (08:39)
[2017-09-17] MEDS: GABAPENTIN 300 MG CAPSULE PO SCH ×3 (08:39→21:02)
[2017-09-17] MEDS: POLYETHYL GLYCOL 3350 17gm PACKET PO SCH ×2 (08:39→08:42)
[2017-09-17] MEDS: TRAMADOL 50 MG TABLET PO SCH ×2 (08:39→21:03)
[2017-09-17] MEDS: DULOXETINE 60 MG CAPSULE PO SCH (09:10)
[2017-09-17] MEDS: ATORVASTATIN 40 MG TABLET PO SCH (21:02)
[2017-09-17] MEDS: TRAZODONE 50 MG TABLET PO SCH (21:03)
[2017-09-18] MEDS: ACETAMINOPHEN 500 MG TABLET PO PRN ×3 (00:54→12:35)
[2017-09-18] MEDS: BACLOFEN 10 MG TABLET PO SCH (08:42)
[2017-09-18] MEDS: DULOXETINE 60 MG CAPSULE PO SCH (08:43)
[2017-09-18] MEDS: GABAPENTIN 300 MG CAPSULE PO SCH ×3 (08:43→20:32)
[2017-09-18] MEDS: TRAMADOL 50 MG TABLET PO SCH ×2 (08:43→20:32)
[2017-09-18] MEDS: LISINOPRIL 5 MG TABLET PO SCH (08:44)
[2017-09-18] MEDS: POLYETHYL GLYCOL 3350 17gm PACKET PO SCH (08:44)
--- NOTE | 2017-09-18 10:51 | IRU Progress Note ---
- Subjective/Serverity of Illness Date: 09/18/17 Sylwia states that she would like to go home today. I told her that it was not yet safe. I discussed her case with therapy. They indicate that the patient is not able to dress herself safely at the present time. There continue to work with her left-sided neglect. Putting a minute or other device on the right arm has been of significant benefit in forcing her to use the left side more. She is able to ambulate with a 4 wheeled rolling walker at modified independent level. Otherwise upper body dressing has declined a bit from standby assist to moderate assistance. Lower body dressing was standby assist and is now minimum assistance. She is able to transfer with standby assistance. Brief update on medical issues as follows: 1. Recent acute intraparenchymal bleed left frontal region with slight midline shift resulting in left-sided weakness: Assessing her strength today, she appears to be improved. Continues to have fine motor movement deficit in the left hand. 2. Hypertension: Her blood pressures are reviewed and are stable. They look good. 3. Recent UTI: This is resolved. 4. Depression: Continues to tolerate Cymbalta 60 mg daily without difficulty.. 5. DJD lumbar spine: Continues to be an issue but receiving tramadol twice daily. Exam Vital Signs: Temperature 98.0 F 09/18/17 07:47 Pulse Rate 78 09/18/17 07:47 Respiratory Rate 18 09/18/17 07:47 Blood Pressure 115/64 09/18/17 07:47 Pulse Oximetry 98 09/18/17 07:47 Height/Weight/BMI: Height 1.73 m Weight 79.5 kg Body Mass Index 26.9 - Constitutional Present: no acute distress, well nourished, well developed Comments: Reports that she would like to go home today. Discussed in detail with her that it is not yet safe. - Routine HEENT Exam Eye: Present: EOMI ENT: Present: mucous membranes moist, oropharynx clear - Routine Respiratory Exam Present: CTA bilaterally. Absent: wheezes - Routine Cardiovascular Exam Present: RRR, S1, S2. Absent: murmur - Routine Abdominal Exam Present: soft, normoactive bowel sounds, non distended. Absent: tenderness - Routine Extremities Exam Present: no edema, normal capillary refill - Routine Skin Exam Present: dry, warm - Routine Neurological Exam Present: alert, oriented X3, CN II-XII intact, motor deficit (continues to display left-sided neglect. Fine motor movement reduced but does have some movement of her left fingers. Strength is reduced at flexion and extension at the left elbow as well as left hip flexion and extension.) - Routine Psychiatric Exam Present: normal affect, depressed. Absent: good insight, good judgment IRU A/P (1) Intraparenchymal hemorrhage of brain Current visit: Yes Status: Acute No evidence of further bleeding. Denies headaches. Continues to have left sided weakness and left sided neglect. (2) Hypertension Qualifiers: Hypertension type: essential hypertension Qualified Code(s): I10 - Essential (primary) hypertension Current visit: Yes Status: Chronic Blood pressures are well controlled. (3) DJD (degenerative joint disease), lumbosacral Current visit: Yes Status: Chronic (4) UTI (urinary tract infection) Qualifiers: Urinary tract infection type: acute cystitis Hematuria presence: without hematuria Qualified Code(s): N30.00 - Acute cystitis without hematuria Current visit: Yes Status: Resolved (5) Depression Qualifiers: Depression Type: reactive depression Qualified Code(s): F32.9 - Major depressive disorder, single episode, unspecified Current visit: Yes Status: Chronic DVT Prophylaxis: SCD's Resuscitation Status: Full Code - Course Hospital Course: Stephen Cerda MD: 09/11/17 11:35 Very cooperative with therapy and improving. Depressed. We will recheck a urinalysis. Increase Cymbalta to 60 mg daily. 09/12/17 10:56 UA is clear. Cymbalta is increased. Neurologically somewhat improved. Progressing with therapy. 09/14/17 11:20 Progressing with therapy. Team meeting today to decide if she is safe to return home at this time. Blood pressures are controlled. Neurologically she continues to improve. Continues to struggle with crying spells/depression 09/15/17 11:02 Continues to progress with therapy. Desires to go home independently although with home health assistance. Neurologically she is stable to improved. Blood pressures are controlled. Therapy addressing left sided neglect. 09/18/17 10:51 Left-sided neglect continues to be an issue. Neurologically she is stable to improved. - Interventions to Obtain Goals PT Treatment Plan: Balance/Proprioception, Functional Activities, Gait Training , Patient/Family Education, Therapeutic Exercise OT Treatment Plan: ADL (Basic Care), Balance Training, IADL, Pt./Family Education, Ther. Exercise for ADL Goals Progress/Modifications: Neurologically she remained stable to improved. She is improving with therapy. However dressing is an issue. She would like to go back to her independent apartment. I spent additional time with her today discussing the fact she may well need additional care at assisted living for a short time at least. Jose Luis discussed the fact that we feel as though it is not safe for her to return home at the present time unless she does have 24-hour supervision early someone come in frequently to check on her.
--- NOTE | 2017-09-18 15:42 | Progress Note ---
- Date 09/18/17 Subjective: Patient is seen lying in bed. She states she is doing well. Her appetite is fine. Her bowels are moving. No chest pain or shortness of breath. She does feel like she's progressing with rehabilitation. Her biggest trouble is still to get her left hand to do what she wants it to do. Objective Vital signs: Temperature 98.0 F 09/18/17 07:47 Pulse Rate 78 09/18/17 07:47 Respiratory Rate 18 09/18/17 07:47 Blood Pressure 115/64 09/18/17 07:47 Pulse Oximetry 98 09/18/17 07:47 Height/Weight/BMI: Height 1.73 m Weight 79.5 kg Body Mass Index 26.9 - Constitutional Present: no acute distress, well nourished, well developed - Routine HEENT Exam Head: Present: normocephalic, atraumatic - Routine Respiratory Exam Present: CTA bilaterally. Absent: wheezes - Routine Cardiovascular Exam Present: RRR, no murmur - Routine Abdominal Exam Present: soft, non distended, non tender - Routine Extremities Exam Present: no edema, normal capillary refill - Routine Skin Exam Present: dry, warm - Routine Neurological Exam Present: alert, oriented X3 Compared to my previous exam, she has much more strength and control over her left leg and improvement in her left upper extremity as well. - Routine Lymphatic Exam Lymphatic: Absent: adenopathy - Routine Psychiatric Exam Present: normal affect, cooperative Results - Labs CBC & Chem 7: 09/16/17 04:31 09/09/17 06:06 Assessment and Plan (1) Intraparenchymal hemorrhage of brain Current visit: Yes Status: Acute (2) Hypertension Current visit: Yes Status: Chronic Assessment and Plan: Assessment Recent intraparenchymal cerebral hemorrhage w/ L sided weakness Hypertension Degenerative joint disease of back Macular degeneration, dry Osteoporosis Peripheral neuropathy Plan Blood pressures have been very stable. No medical concerns at this time. Continue current care. Continue to encourage therapies and care per Dr. Cerda. - Physician Narrative Narrative: Date: 09/18/17 Time: 475 Hospital Course Summary Disclaimer: The visit summary below is not to be considered part of the above Progress Note. Hospital Course: 09/12/17 Continue to encourage therapies and care per Dr. Cerda. Cymbalta increased to 60mg daily due to depression. Continue to monitor mood closely. Admission labs stable. Will monitor periodically throughout admission. Continue current care. 09/18/17 Blood pressures have been very stable. No medical concerns at this time. Continue current care. Continue to encourage therapies and care per Dr. Cerda.
[2017-09-18] MEDS: ATORVASTATIN 40 MG TABLET PO SCH (20:33)
[2017-09-18] MEDS: TRAZODONE 50 MG TABLET PO SCH (20:33)
[2017-09-19] MEDS: ACETAMINOPHEN 500 MG TABLET PO PRN ×3 (00:40→14:50)
[2017-09-19] MEDS: POLYETHYL GLYCOL 3350 17gm PACKET PO SCH (08:52)
[2017-09-19] MEDS: DULOXETINE 60 MG CAPSULE PO SCH (08:53)
[2017-09-19] MEDS: GABAPENTIN 300 MG CAPSULE PO SCH ×3 (08:53→20:56)
[2017-09-19] MEDS: BACLOFEN 10 MG TABLET PO SCH (08:53)
[2017-09-19] MEDS: TRAMADOL 50 MG TABLET PO SCH ×2 (08:53→20:56)
[2017-09-19] MEDS: LISINOPRIL 5 MG TABLET PO SCH (08:53)
--- NOTE | 2017-09-19 10:55 | IRU Progress Note ---
- Subjective/Serverity of Illness Date: 09/19/17 Sylwia continues to struggle with left-sided neglect. JEFF exam was ordered yesterday and we will review that at the appropriate time. Discussed with case management regarding placement. Sylwia is open to the possibility of assisted living at [facility]. She denies any chest pain or shortness of breath. Her energy is reasonably good. She denies any headache. She denies difficulty swallowing. Bowels are moving. Therapy has point about the patient's poor safety awareness. Exam Vital Signs: Temperature 98.1 F 09/19/17 08:00 Pulse Rate 66 09/19/17 08:00 Respiratory Rate 16 09/19/17 08:00 Blood Pressure 120/57 09/19/17 08:00 Pulse Oximetry 94 09/19/17 08:00 Height/Weight/BMI: Height 1.73 m Weight 79.5 kg Body Mass Index 26.9 - Constitutional Present: no acute distress, well nourished, well developed Comments: Sylwia is cooperative. She has good speech. She seems to be well oriented. - Routine HEENT Exam Eye: Present: EOMI ENT: Present: mucous membranes moist, oropharynx clear - Routine Neck Exam Present: supple - Routine Respiratory Exam Present: CTA bilaterally. Absent: wheezes - Routine Cardiovascular Exam Present: RRR, S1, S2. Absent: murmur - Routine Abdominal Exam Present: soft, normoactive bowel sounds, non distended. Absent: tenderness - Routine Extremities Exam Present: no edema. Absent: cyanosis, clubbing - Routine Back/Spine/Pelvis Exam Back/Spine: Present: kyphosis - Routine Skin Exam Present: dry, warm - Routine Neurological Exam Present: alert, oriented X3, CN II-XII intact, motor deficit (continues to display left-sided neglect. Fine motor movement improving left hand.) - Routine Psychiatric Exam Present: normal affect, depressed. Absent: good insight, good judgment IRU A/P (1) Intraparenchymal hemorrhage of brain Current visit: Yes Status: Acute No evidence of further bleeding. Continues to struggle with sequelae of stroke. Blood pressures well controlled. (2) Hypertension Qualifiers: Hypertension type: essential hypertension Qualified Code(s): I10 - Essential (primary) hypertension Current visit: Yes Status: Chronic (3) DJD (degenerative joint disease), lumbosacral Current visit: Yes Status: Chronic (4) UTI (urinary tract infection) Qualifiers: Urinary tract infection type: acute cystitis Hematuria presence: without hematuria Qualified Code(s): N30.00 - Acute cystitis without hematuria Current visit: Yes Status: Resolved (5) Depression Qualifiers: Depression Type: reactive depression Qualified Code(s): F32.9 - Major depressive disorder, single episode, unspecified Current visit: Yes Status: Chronic DVT Prophylaxis: SCD's Resuscitation Status: Full Code - Course Hospital Course: Stephen Cerda MD: 09/11/17 11:35 Very cooperative with therapy and improving. Depressed. We will recheck a urinalysis. Increase Cymbalta to 60 mg daily. 09/12/17 10:56 UA is clear. Cymbalta is increased. Neurologically somewhat improved. Progressing with therapy. 09/14/17 11:20 Progressing with therapy. Team meeting today to decide if she is safe to return home at this time. Blood pressures are controlled. Neurologically she continues to improve. Continues to struggle with crying spells/depression 09/15/17 11:02 Continues to progress with therapy. Desires to go home independently although with home health assistance. Neurologically she is stable to improved. Blood pressures are controlled. Therapy addressing left sided neglect. 09/18/17 10:51 Left-sided neglect continues to be an issue. Neurologically she is stable to improved. 09/19/17 10:55 Continues to work with left-sided neglect. JEFF exam today Anticipate transfer to assisted living in a couple of days. - Interventions to Obtain Goals PT Treatment Plan: Balance/Proprioception, Functional Activities, Gait Training , Patient/Family Education, Therapeutic Exercise OT Treatment Plan: ADL (Basic Care), Balance Training, IADL, Pt./Family Education, Ther. Exercise for ADL Goals Progress/Modifications: Discussed with Sylwia her concerns regarding safety awareness etc. Discussed also with case management. We would like to have someone with her most of the time. We urged her not to be cooking nor using the stove nor of and due to safety concerns. She says that her family will be able to provide some frozen meals and she will warm them up in the microwave. In addition she still requires assistance with dressing and she will need someone with her in the mornings at least. If this cannot be arranged in her own apartment, then assisted living would be the appropriate option. Says like she is open to that option.
[2017-09-19] MEDS: ATORVASTATIN 40 MG TABLET PO SCH (20:56)
[2017-09-19] MEDS: TRAZODONE 50 MG TABLET PO SCH (20:56)
[2017-09-20] MEDS: ACETAMINOPHEN 500 MG TABLET PO PRN ×3 (02:19→21:27)
[2017-09-20] MEDS: LISINOPRIL 5 MG TABLET PO SCH (08:24)
[2017-09-20] MEDS: TRAMADOL 50 MG TABLET PO SCH ×2 (08:24→21:27)
[2017-09-20] MEDS: BACLOFEN 10 MG TABLET PO SCH (08:24)
[2017-09-20] MEDS: GABAPENTIN 300 MG CAPSULE PO SCH ×3 (08:24→21:27)
[2017-09-20] MEDS: DULOXETINE 60 MG CAPSULE PO SCH (08:24)
[2017-09-20] MEDS: POLYETHYL GLYCOL 3350 17gm PACKET PO SCH (08:25)
[2017-09-20] MEDS ORDERED: FALL RISK - PHARMACY CONSULT XX ONE (09:24)
[2017-09-20] MEDS: ATORVASTATIN 40 MG TABLET PO SCH (21:27)
[2017-09-20] MEDS: TRAZODONE 50 MG TABLET PO SCH (21:28)
[2017-09-20 22:57] VITALS: O2SAT 98
[2017-09-21] MEDS: GABAPENTIN 300 MG CAPSULE PO SCH (09:41)
[2017-09-21] MEDS: LISINOPRIL 5 MG TABLET PO SCH (09:41)
[2017-09-21] MEDS: POLYETHYL GLYCOL 3350 17gm PACKET PO SCH (09:41)
[2017-09-21] MEDS: BACLOFEN 10 MG TABLET PO SCH (09:41)
[2017-09-21] MEDS: DULOXETINE 60 MG CAPSULE PO SCH (09:42)
[2017-09-21] MEDS: TRAMADOL 50 MG TABLET PO SCH (09:42)
--- NOTE | 2017-09-21 10:54 | Extended Care Facility Orders ---
Admission Orders Admit to:: [facility] Allergies/Adverse Reactions: Allergies acetaminophen [From Percocet] Allergy (Verified 06/01/17 10:24) oxycodone [From Percocet] Allergy (Verified 06/01/17 10:24) Admitting Diagnosis: CVA Admitting Physician: Stephen Cerda MD Attending Physician: Stephen Cerda MD Code Status: Full Code Anticiapted Length of Stay: 30 days or less Rehab Potential: good Rehab Prognosis: good Diet: 09/08/17 Lunch Regular Diet [DIET] Diet Modifications: Wound/Incision Care: N/A May use Facility Protocol or Standing Orders: Yes May have flu vaccine: Yes Evaluations/Treatment: PT, OT [facility] Certification: I certify that SNF services are required to be given on an Inpatient basis because of the patients need for retirement care on a continuing basis for the condition(s) for which he/she received inpatient hospital services prior to his/her transfer to the SNF. SNF inpatient care is necessary for the following reasons: monitoring of blood pressure and neurologic status in view of brain bleed and to reduce fall risk. Indication for [facility]: Neuro Assessment - Additional Information In Event of Arrest: Start CPR,call 911,send patient to the ER Resident is Aware of Diagnosis: Yes Referrals: Mally Del Rio MD [Family Provider] - (Dr. William Del Rio on 09/29/17 at 9:50 am for Hosp. follow-up. . [facility] [address] [place] [address])
[2017-09-21 11:23] VITALS: BP 135/65; PULSE 101; RESP 20; TEMP 98
--- NOTE | 2017-09-21 13:53 | IRU Team Meeting ---
IRU Team Meeting - Nursing Bladder Assistive Devices Utilized:: Absorbent Pad Bladder Management Level of Assist: Modified Independent Bladder Frequency of Accidents: No accidents Bowel Assistive Devices Utilized:: Medication Bowel Management Level of Assist: Modified Independent Bowel Frequency of Accidents: No accidents Vital Signs: Vital Signs - 24 hr 09/20/17 16:00 09/20/17 20:00 09/21/17 08:00 Temperature 98.6 F 98.3 F 98.0 F Pulse Rate 79 68 101 H Respiratory Rate 16 18 20 Blood Pressure 122/69 129/64 135/65 Pulse Oximetry 100 98 98 Current Medical Issues: intraparenchymal brain hemorrhage, hypertension, low back pain Comments: I certify that I personally led the interdisciplinary team meeting and agree with comments, barriers and goals indicated. Team meeting was held in the patient's room with the patient and the following family members present: patient's son Patient is tolerating increased dose of Cymbalta well. Her blood pressures have been well controlled. Bowel and bladder function is normal. - Physical Therapy Bed, Chair, Wheelchair Transfer Assist: Stand By Assist/Supervision Ambulation Ability: Modified Independent Ambulation Distance: 600 Stair Climbing Ability: Stand By Assist/Supervision Number of Steps Climbed: 12 Car Transfer Ability: Stand By Assist/Supervision Comments: Sylwia has done well with physical therapy. There is some concern about safety awareness and left sided neglect. She is walking in a modified independent manner 600 feet. Continues to work with therapy to work toward independence.. - Occupational Therapy Eating Ability: Independent Grooming Ability: Modified Independent Bathing Ability: Stand By Assist/Supervision Upper Body Dressing Ability: Stand By Assist/Supervision Lower Body Dressing Ability: Stand By Assist/Supervision Tub Transfer Assist: Stand By Assist/Supervision Toileting Assist: Stand By Assist/Supervision Toilet Transfer Assist: Modified Independent Comments: She continues to improve with occupational therapy but has significant left sided neglect. Has difficulty with visual perception and problem solving during dressing tasks. Requires multiple cues for clothing orientation to complete the tasks correctly. - Goals Physical Therapy Goals: 09/14/17 Goals: 1.) Modified independence with ambulation and transfers Occupational Therapy Goals: OT goals 09/14/17: 1.) Maintain upright posture during ADL tasks. 2.) Improve L sided awareness during ADL tasks. - Barriers to Discharge Barriers to Attaining Goals: Balance (balance and proprioceptive training is being undertaken.), Medical Limitation (left-sided neglect: Patient is involved in forced use activities) - Care Plan Anticipated Length of Stay (days): 0 Anticipated DC Destination: Group Home/Facility I have led this team conference and agree with the plan. Interventions/Goals: Patient is not safe for home environment on a 24-hour basis. Patient has elected to go to jail for additional PT and OT and jail monitoring of her neurologic status and blood pressure etc.
--- NOTE | 2017-09-21 15:01 | Discharge Summary ---
Discharge Information Date of admission: 09/08/17 11:11 Anticipated date of discharge: 09/21/17 Attending Physician: Stephen Cerda MD Primary care physician: Mally Del Rio MD Consults: 09/08/17 11:53 Physician Consult [CONS] Routine Consulting Provider: Jarrett Luciano Reason For Exam: medical management Ordering Provider has Notified Financial Services Consultant: Yes 09/09/17 05:27 Case Management Consult [CONS] Routine Reason For Exam: Noc Ox Study - Discharge Diagnosis (1) Intraparenchymal hemorrhage of brain Status: Acute (2) Hypertension Status: Chronic (3) DJD (degenerative joint disease), lumbosacral Status: Chronic (4) Depression Status: Chronic 1. Intraparenchymal hemorrhage of brain, right frontal lobe resulting in left sided weakness and left-sided neglect 2. Benign essential hypertension 3. Degenerative joint disease of lumbar spine 4. Depression - Laboratory Labs: 09/16/17 04:31 09/09/17 06:06 History of Present Illness HPI: Sylwia is a pleasant 77-year-old female that developed left-sided weakness on or about every 2017. A CT scan revealed the presence of an intraparenchymal bleed. She was transferred to via [facility] in [place]. CT angiogram of the head and neck was performed revealing only mild stenoses and no evidence of aneurysm. Etiology of the bleed is not clear. She does have history of hypertension. Recommendations were made for conservative management. She was transferred to acute inpatient rehabilitation on September 08, 2017 Hospital Course This is a general summary of the patient's hospital course. For more details refer to the complete medical record. Sylwia was admitted to acute inpatient rehabilitation on September 08, 2017 for a multidisciplinary, comprehensive approach to her rehabilitation. Her main deficit appeared to be in the left upper extremity although she had some weakness in the left leg as well. She has significant left sided neglect. She was followed by the hospitalist service as well as Dr. Cerda while on acute inpatient rehabilitation. She was seen by occupational therapy. At the conclusion of therapy she was able to eat independently. Grooming required modified independent functioning as did bathing. She was standby assist for upper body dressing and lower body dressing. Lower body dressing was difficult because of her left sided neglect. She required multiple verbal cues and at times required assistance with that. Toilet assist with standby assistance level. Toilet transfers cyst was modified independent. Bed/chair/wheelchair transfers were modified independent level. For physical therapy bed/chair/wheelchair transfers were standby assist level. Car transfers were standby assist. She was able to ambulate over 400 feet with a 4 wheeled walker with standby assistance of 1 person. She continues to struggle with safety awareness and left sided neglect. For this reason it is recommended that she continue therapy for both PT and OT to improve left-sided neglect. Forced use of left side techniques were instituted. Her blood pressures were monitored and were stable and not elevated during this hospitalization. We continued her tramadol twice daily for her chronic low back pain. She did have several crying episodes. Her Cymbalta was increased from 30-60 mg daily and she tolerated this well. She is transferred to [facility] on 09/21/2017 under the care of Dr. Mally Del Rio with whom I spoke today. Hospital course: 09/12/17 Continue to encourage therapies and care per Dr. Cerda. Cymbalta increased to 60mg daily due to depression. Continue to monitor mood closely. Admission labs stable. Will monitor periodically throughout admission. Continue current care. 09/18/17 Blood pressures have been very stable. No medical concerns at this time. Continue current care. Continue to encourage therapies and care per Dr. Cerda. Time spent with patient: greater than 35 minutes Resuscitation Status: Full Code Discharge Plan - Med Rec/Dispo Referrals/Follow Up: Mally Del Rio MD [Family Provider] - (Dr. William Del Rio on 09/29/17 at 9:50 am for Hosp. follow-up. [phone]. [facility] [address] [place] [address]) Giovana Instructions: Hemorrhagic Stroke (GEN), Chronic Hypertension (DC), Fall Prevention (DC) Prescriptions: New Duloxetine [Cymbalta] 60 mg PO DAILY #30 cap Trazodone [Desyrel] 25 mg PO HS #30 tab Continue Atorvastatin Calcium 1 tab PO HS #0 tab Lisinopril [Prinivil] 5 mg PO DAILY Gabapentin 300 mg PO TID Meloxicam 15 mg PO DAILY PRN PRN Reason: mild pain 1-3 Oxybutynin Chloride 5 mg PO DAILY PRN PRN Reason: urinary discomfort alendronate 70 mg tablet 70 mg PO WEEKLY tab Ultram (Tramadol) 50 mg tablet 50 mg PO BID tab Mapap Extra Strength 500 mg tablet 500 mg PO Q4HPRN PRN PRN Reason: pain mild 1-3 baclofen 10 mg tablet 10 mg PO DAILY #60 tab Discontinued Ramelteon [Rozerem] 8 mg PO HS Cymbalta (duloxetine) 30 mg capsule,delayed release 30 mg PO DAILY #30 cap - Disposition 03 To SNU Not [facility] ([facility]) - Dismissal Complete Discharge Instructions are:: Complete
--- NOTE | 2017-09-21 15:07 | Letter to Referring Physician ---
Dear Dr. Bal, This is a brief note to bring you up-to-date on the status of Sylwia Husain and her stay on the acute inpatient rehabilitation unit at [facility]. As you are likely aware, this patient was admitted to [facility] on 09/06/17 for acute intraparenchymal brain hemorrhage in the right frontal lobe. CT angiogram done in [place] failed to reveal evidence of aneurysm and only mild stenosis was identified. Etiology of the bleed is not clear. The patient was stabilized while on the acute level and admitted to inpatient rehabilitation unit at [facility] on September 08, 2017. While on inpatient rehabilitation, this patient was seen by occupational therapy and physical therapy and improved overall in their functional ability. We also monitored and managed the patient's depression and hypertension while on Acute Rehab. Please see a copy of the history and physical examination as well as discharge summary enclosed with this letter for further details. While Sylwia had significant functional gains, she was not felt to be safe to return to her own home at this time although it is anticipated she will be in the future. She continued to have significant left sided neglect and had significant reduced safety awareness. It is our believe that she will benefit from continued physical therapy and occupational therapy on the skilled level with hopeful transitioning to her home at some point in the future. I did increase her Cymbalta from 30 to 60 mg because of depression. She tolerated this well. Thank you for allowing us to be involved in this nice patient's care. Please contact me directly should you have any questions regarding their stay on the inpatient rehabilitation unit. Sincerely, Stephen Cerda M.D.
== END 2017-09-21 12:20 | DRG 57 ==
PROVIDERS: ADMIT Internal Medicine; ATTEND Internal Medicine